=== PATIENT | female | born 1950 | race Caucasian/White ===

== ENCOUNTER 2019-03-27 16:36 | Emergency (ER) | payer MEDICARE, OTHER ==
[~2019-03-27] VITALS: Ht 154.9 cm; Wt 50.9 kg
[2019-03-27 17:16] LABS: BASO % 0.3 % (0.0-1.0); EOS % 0.1 % (0.0-3.0); HEMATOCRIT 39.8 % (36.0-47.0); HEMOGLOBIN 13.2 g/dl (12.0-15.5); LYMPH # 2.4 10^3/uL (1.5-4.5); LYMPH % 19.6 % (24.0-44.0); MEAN CORPUSCULAR HEMOGLOBIN 31.5 pg (27.0-33.0); MEAN CORPUSCULAR HGB CONC 33.2 g/dl (32.0-36.5); MONO # 1.3 10^3/uL (0.0-0.8); MONO % 10.8 % (0.0-5.0); NEUTROPHILS # 8.3 10^3/uL (1.8-7.7); NEUTROPHILS % 68.7 % (36.0-66.0); PLATELET COUNT, AUTOMATED 243 10^3/uL (150-450); RED BLOOD COUNT 4.19 10^6/uL (4.00-5.40)
[2019-03-27 17:32] LABS: BLOOD UREA NITROGEN 8 MG/DL (7-18); CREATININE FOR GFR 0.67 MG/DL (0.55-1.30); GLUCOSE, FASTING 113 MG/DL (70-100)
[2019-03-27 17:33] LABS: CALCIUM LEVEL 8.8 MG/DL (8.8-10.2); CARBON DIOXIDE LEVEL 26 MEQ/L (21-32); CHLORIDE LEVEL 105 MEQ/L (98-107); GLOMERULAR FILTRATION RATE > 60.0 (>45); POTASSIUM SERUM 4.1 MEQ/L (3.5-5.1); SODIUM LEVEL 138 MEQ/L (136-145)
[2019-03-27 18:13] VITALS: BP 130/83
--- NOTE | 2019-03-27 18:30 | REP ---
LUMBOSACRAL SPINE: Five views of the lumbosacral spine are performed. No compression fracture is seen. There is severe right rotatory thoracolumbar scoliosis with accentuation of lumbar lordosis. There is mild diffuse spurring. There is mild to moderate disc space narrowing at all levels with sclerosis and hypertrophic spurring at the posterior facet joints diffusely but especially at L4-5 and L5-S1. Posterior elements are grossly intact. IMPRESSION: Significant degenerative changes and right rotatory thoracolumbar scoliosis. No compression fracture is seen. Electronically Signed by William Munroe MD 03/27/2019 08:19 P
== END 2019-03-27 18:40 | disposition home or self-care (01) ==
LOC: M ED 16:36
DX: M54.5 Low back pain (principal); M41.9 Scoliosis, unspecified; M51.37 Other intervertebral disc degeneration, lumbosacral region; L40.9 Psoriasis, unspecified; R01.1 Cardiac murmur, unspecified; Z88.5 Allergy status to narcotic agent

== ENCOUNTER → 2019-05-22 | Outpatient (CLI) | payer MEDICARE, OTHER ==
--- NOTE | 2019-05-22 10:49 | REPMRS ---
Patient History The patient states she has not had a clinical breast exam in over a year. No known family history of cancer. Benign stereotactic core biopsy of the left breast, 2008. Took hormonal contraceptives for 13 years. 3D TOMOSYNTHESIS WAS PERFORMED. The Rainer Maher lifetime risk for breast cancer is 5.6%. Digital Mammo Screening Bilat: May 22, 2019 - Exam #: [id number] Bilateral CC and MLO view(s) were taken. Technologist: Ayah Fiore, Technologist Prior study comparison: January 20, 2016, bilateral digital mammo screening bilat performed at [facility]. February 11, 2015, bilateral digital mammo screening bilat performed at [facility]. FINDINGS: The breast tissue is heterogeneously dense. This may lower the sensitivity of mammography. There has been no change in the appearance of the mammogram from the prior studies. There is a moderate amount of residual fibroglandular tissue which is fairly symmetric. There is no interval development of dominant mass, areas of architectural distortion, or clustered microcalcification typical of malignancy. Assessment: BI-RADS/ACR category 1 mammogram. Negative Mammogram. Recommendation Routine screening mammogram in 1 year (for women over age 40). This mammogram was interpreted with the aid of an FDA-approved computer-aided dectection system. Electronically Signed By: William Munroe MD 05/22/19 [id number]
== END ==
LOC: M RAD 09:13
PROVIDERS: ATTEND Physician Assistant
DX: Z12.31 Encounter for screening mammogram for malignant neoplasm of breast (principal); Z92.0 Personal history of contraception

== ENCOUNTER → 2019-06-04 | Outpatient (CLI) | payer MEDICARE, OTHER ==
[2019-06-04 09:09] LABS: CHOLESTEROL RISK RATIO 4.47 (<5); MAGNESIUM LEVEL 2.6 MG/DL (1.8-2.4)
== END ==
LOC: M LAB 08:07
PROVIDERS: ATTEND Physician Assistant
DX: Z00.00 Encounter for general adult medical examination without abnormal findings (principal)

== ENCOUNTER → 2019-06-26 | Outpatient (CLI) | payer MEDICARE, OTHER ==
[~2019-06-26] MED LIST: CENT1TAB PO; CENTCHW4 PO; CETI5SOL3 PO; D200CAP3 PO; GNP250TA9 PO; MAGN240P PO; MYLASSUD PO; VITA1CHW7 PO; ZYRTTAB8 PO
[2019-06-26 08:40] LABS: BASO % 0.1 % (0.0-1.0); HEMATOCRIT 34.1 % (36.0-47.0); HEMOGLOBIN 11.3 g/dl (12.0-15.5); LYMPH # 1.3 10^3/uL (1.5-5.0); LYMPH % 16.8 % (24.0-44.0); MEAN CORPUSCULAR HEMOGLOBIN 32.6 pg (27.0-33.0); MEAN CORPUSCULAR HGB CONC 33.1 g/dl (32.0-36.5); MEAN CORPUSCULAR VOLUME 98.3 fl (80.0-96.0); MONO # 0.4 10^3/uL (0.0-0.8); MONO % 5.5 % (0.0-5.0); NEUTROPHILS # 5.9 10^3/uL (1.5-8.5); NEUTROPHILS % 76.9 % (36.0-66.0); PLATELET COUNT, AUTOMATED 136 10^3/uL (150-450); RED BLOOD COUNT 3.47 10^6/uL (4.00-5.40); WHITE BLOOD COUNT 7.7 10^3/uL (4.0-10.0)
[2019-06-26 09:09] LABS: ALT/SGPT 13 U/L (12-78); BILIRUBIN,TOTAL 1.2 MG/DL (0.2-1.0); BLOOD UREA NITROGEN 7 MG/DL (7-18); CALCIUM LEVEL 8.7 MG/DL (8.8-10.2); CARBON DIOXIDE LEVEL 25 MEQ/L (21-32); CHLORIDE LEVEL 105 MEQ/L (98-107); CREATININE FOR GFR 0.66 MG/DL (0.55-1.30); GLOMERULAR FILTRATION RATE > 60.0 (>45); GLUCOSE, FASTING 113 MG/DL (70-100); SODIUM LEVEL 139 MEQ/L (136-145)
== END ==
LOC: M LAB 08:08
PROVIDERS: ATTEND Family Medicine
DX: R01.1 Cardiac murmur, unspecified (principal)

== ENCOUNTER → 2019-06-28 | Outpatient (CLI) | payer MEDICARE, OTHER ==
--- NOTE | 2019-06-28 18:48 | ECHO ---
DATE OF PROCEDURE: 06/28/2019 AGE: 69 GENDER: Female HEIGHT: 61 inches WEIGHT: 104 pounds BODY SURFACE AREA: 1.43 m2 PATIENT LOCATION: Outpatient REFERRING PHYSICIAN: Susan Briseno MD INDICATION: Murmur. 2D MEASUREMENTS RV: 3.6 cm LV: 5.2 cm Septum: 0.9 cm Posterior wall: 0.9 cm Aortic root: 2.2 cm LA: 5.0 cm LVEF: 75% DOPPLER MEASUREMENTS: AV: 1.26 m/s LVOT: 1.17 m/s LVOT diameter: 1.8 cm MV-E: 150, A: 117, EA ratio: 1.3 Early mitral deceleration time: 180 ms E prime: 10.4, A prime: 9, E/E prime ratio: 14.4 PCWP: 17.3 PV: 0.7 m/s Pulmonary artery acceleration time: 74 ms RVSP: 49 - 54 mmHg IVC: 1.6 cm COMMENTS Normal sinus rhythm without intraventricular conduction disturbance. M-mode and two-dimensional echocardiography was performed with pulsed, continuous wave, color flow and tissue Doppler studies. Normal left ventricular size, wall thickness and hyperkinetic wall motion. Moderately prominently dilated left atrium with Doppler findings suggestive of at least a mildly elevated mean left atrial pressure. Normal right heart chamber sizes and motion with Doppler evidence of at least moderate pulmonary hypertension. Normal IVC size with slightly reduced respiratory collapse in keeping with central venous pressure of 10 - 15 mmHg. Normal appearing and functioning aortic valve. Normal aortic root size. 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 Could not rule out a sessile vegetation on the posterior mitral leaflet but no obvious ruptured chordae tendineae. Normal appearing tricuspid valve with mild to moderate insufficiency. No separate intracardiac mass or pericardial effusion. Would strongly recommend complete blood count, sedimentation rate and two separate sets of blood cultures along with transesophageal echocardiography to further define her mitral valve. MTDD
== END ==
LOC: M CARPUL 10:18
PROVIDERS: ATTEND Family Medicine
DX: R01.1 Cardiac murmur, unspecified (principal); R60.0 Localized edema; I34.1 Nonrheumatic mitral (valve) prolapse; I36.1 Nonrheumatic tricuspid (valve) insufficiency

== ENCOUNTER 2019-07-02 09:21 | Inpatient (IN) | payer MEDICARE, OTHER ==
[~2019-07-02] VITALS: Ht 154.9 cm; Wt 45.1 kg
[2019-07-02] MEDS ORDERED: ZYRTTAB8 PO (09:40)
[2019-07-02] MEDS ORDERED: D200CAP3 PO (09:40)
[2019-07-02] MEDS ORDERED: CENT1TAB PO (09:40)
[2019-07-02] MEDS ORDERED: GNP250TA9 PO (09:40)
[2019-07-02 10:21] LABS: BASO % 0.3 % (0.0-1.0); HEMATOCRIT 34.1 % (36.0-47.0); LYMPH % 20.2 % (24.0-44.0); MEAN CORPUSCULAR HEMOGLOBIN 32.1 pg (27.0-33.0); MEAN CORPUSCULAR HGB CONC 32.3 g/dl (32.0-36.5); MEAN CORPUSCULAR VOLUME 99.4 fl (80.0-96.0); MONO # 0.5 10^3/uL (0.0-0.8); MONO % 4.6 % (0.0-5.0); NEUTROPHILS # 7.3 10^3/uL (1.5-8.5); NEUTROPHILS % 74.1 % (36.0-66.0); PLATELET COUNT, AUTOMATED 121 10^3/uL (150-450); RED BLOOD COUNT 3.43 10^6/uL (4.00-5.40); WHITE BLOOD COUNT 9.8 10^3/uL (4.0-10.0)
[2019-07-02 10:44] LABS: BLOOD UREA NITROGEN 9 MG/DL (7-18); C REACTIVE PROTEIN QUANTITATIV 1.94 MG/DL (0.00-0.30); CALCIUM LEVEL 8.5 MG/DL (8.8-10.2); CARBON DIOXIDE LEVEL 24 MEQ/L (21-32); CHLORIDE LEVEL 105 MEQ/L (98-107); CREATININE FOR GFR 0.68 MG/DL (0.55-1.30); GLOMERULAR FILTRATION RATE > 60.0 (>45); GLUCOSE, FASTING 99 MG/DL (70-100); POTASSIUM SERUM 3.7 MEQ/L (3.5-5.1); SODIUM LEVEL 137 MEQ/L (136-145)
[2019-07-02] MEDS ORDERED: VITA1CHW7 PO (10:55)
[2019-07-02] MEDS ORDERED: MAGN240P PO (10:55)
[2019-07-02] MEDS ORDERED: CETI5SOL3 PO (10:55)
[2019-07-02] MEDS ORDERED: CENTCHW4 PO (10:55)
[2019-07-02] MEDS ORDERED: FLUID PLACE HOLDER IV ONE (11:00)
[2019-07-02] MEDS ORDERED: VANCOMYCIN HCL IV ONE (11:00)
[2019-07-02 11:04] LABS: ERYTHROCYTE SEDIMENTATION RATE 39 mm/hr (0-30)
--- NOTE | 2019-07-02 11:39 | REP ---
Portable chest, 11:13 a.m., single AP view with the patient sitting: There are no comparisons. There is elevation of the right hemidiaphragm. There is scoliosis convex left in the inferior thoracic spine and right in the upper lumbar spine. The lung vill[place]te are clear. Cardiac size is upper normal for portable positioning. The fam, mediastinum, skeletal structures are otherwise unremarkable. Impression: There are no acute cardiopulmonary findings. Scoliosis as described. Elevated right hemidiaphragm. Electronically Signed by William Dillard MD 07/02/2019 11:30 A
[2019-07-02] MEDS ORDERED: MOM 30ML SUSPENSION UDC PO PRN (11:45)
[2019-07-02] MEDS ORDERED: MAALOX 30 ML SUSP *UDC PO PRN (11:45)
[2019-07-02] MEDS ORDERED: VANCOMYCIN HCL 1,000 MG, VIAL MATE ADAPTER 1 EACH in D5W 250 ML IV ONE (12:00)
[2019-07-02] MEDS ORDERED: VANCOMYCIN HCL 1,000 MG, VIAL MATE ADAPTER 1 EACH in D5W 250 ML IV SCH ×2 (13:00→14:30)
[2019-07-02 14:00] VITALS: BP 122/58
--- NOTE | 2019-07-02 14:40 | PHACANCOPD ---
PHARMACY VANCOMYCIN DOSING Pt Demographics Demographics Patient Age:69 , Weight:46.300 , Gender: female Adjusted Body Weight Date: 07/02/19, Adjusted Body Weight: [46.3] Kg Events Past 24 Hours Events Past 24 Hours: YES: Pending Diagnostics; NO: Dialysis, Diuretic Therapy, Change in CrCl, Fever, Elevation in WBC, Pending Procedures, Other Vancomycin Vancomycin indication: ENDOCARDITIS Vancomycin Target Ranges: 15-20 mcg/ml Vancomycin Load Y/N: Yes Load Dose Date Time Vancomycin Load Dose: 1G Date: 07/02/19 Time: 1200 Vancomycin Dose Date: 07/02/19. Current Vancomycin Dose: [750MG Q18H] Intermittent Dosing?: No Labs Labs Vital Signs Label Value Date Time Patient Temperature 97.9 degrees F 07/02/19 1400 Temperature Source Temporal 07/02/19 1400 Item Value Date Time Creatinine 0.68 MG/DL 07/02/19 0957 C-Reactive Protein, Quantitative 1.94 MG/DL H 07/02/19 0957 White Blood Count 9.8 10^3/uL 07/02/19 0957 Micro Microbiology 07/02/19 Blood Culture, Received Pending 07/02/19 Blood Culture, Received Pending 07/02/19 Blood Culture, Received Pending Creatinine Clearance Date:07/02/19. Creatinine Clearance: [63.9]. Pending Labs BLOOD CULTURES PENDING Assessment and Plan Maintaining Current Dose?: Yes Reason for dose change: No Dose Change Pharmacist Note Pharmacist Note Date: 07/02/19. Pharmacist note: Patient is new to our facility with no previous record of Vancomycin therapy. Suspected endocarditis yielded a vancomycin consult. The patient's creatinine is 0.68, her creatinine clearance is 63.9. She was given a 1g loading dose at 1200 on 07/02 and her calculated maintenance dose is 750mg Q18H with her next dose to be administered on 07/03/19 at 0600. We will continue to monitor and dose adjust as necessary. CARMINE MCCORMICK, PHARMACY Jul 02, 2019 14:40
[2019-07-02] MEDS ORDERED: SLF 3 ML SYR IV PRN (14:45)
--- NOTE | 2019-07-02 15:53 | HPEPDOC ---
General Date of Admission Jul 02, 2019 at 11:39 Date of Service: Jul 02, 2019 Chief Complaint The patient is a 69-year-old female admitted with a reason for visit of Infective Endocarditis. Source: Patient, RN/MD Exam Limitations: No limitations Severity: Moderate History of Present Illness 69 year old female with a cardiac murmur, scoliosis seen by cardio Dr Aguila on 05/24/19 for this murmur and scheduled for an echo on 07/13/19 has been feeling sick for the past 2 weeks. Has been feeling tired fatigued and noticed petecchia on her legs . Last week she noticed swelling of her legs with incresed SOB so went to see PMD. 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 Could not rule out a sessile vegetation on the posterior mitral leaflet but no obvious ruptured chordae ten dineae. Patient was called and told to come to the ED for possible endocarditis work up and management. Home Medications Scheduled Cetirizine Hcl (Cetirizine HCl) 1 Mg/1 Ml Solution, 5 ML PO BID, (Reported) Cholecalciferol (Vitamin D3) (Vitamin D3) 2,000 Unit Tab.chew, 2,000 UNIT PO DAILY, (Reported) HAS CHEWABLE GUMMIES AT HOME Magnesium Oxide (Magnesium Oxide 400) 240 Mg Powd.pack, 175 MG PO DAILY, (Reported) MIXED WITH WATER Multivit-Min/Iron/Folic/Vit K1 (Centrum Chewables Adults Tab) 1 Each Tab.chew, 1 TAB PO DAILY, (Reported) Allergies Coded Allergies: codeine (Verified Adverse Reaction, Intermediate, severe PRADHAN, 03/27/19) Past Medical History Medical History Chronic back pain, scoliosis, heart mumur Surgical History tonsillectomy, appendectomy, c section Family History She was adopted so does know about any family history Social History * Smoker: Denies Alcohol: Denies Drugs: denies A-FIB/CHADSVASC A-FIB History Current/History of A-Fib/PAF?: No Review of Systems Constitutional: Reports: Fever, Weakness, Fatigue; Denies: Chills, Malaise, Night Sweats Eyes: Denies: Pain, Vision change ENT: Denies: Head Aches, Ear Pain, Dysphagia Skin: Reports: Rash Pulmonary: Reports: Dyspnea; Denies: Cough Cardiovascular: Reports: Edema; Denies: Chest Pain, Palpitations, Orthopnea, Paroxysmal Noc. Dyspnea, Lt Headedness Gastrointestinal: Denies: Nausea, Vomiting, Abdominal Pain, Diarrhea Genitourinary: Denies: Dysuria, Frequency, Incontinence, Retention Hematologic: Reports: Petecchia Musculoskeletal: Reports: Back Pain; Denies: Neck Pain, Joint Pain, Muscle Pain, Spasms Physical Examination General Exam: Positive: Alert, Cooperative, No Acute Distress Eye Exam: Positive: PERRLA, Conjunctiva & lids normal, EOMI; Negative: Sclera icteric ENT Exam: Positive: Atraumatic, Mucous membr. moist/pink, Pharynx Normal Neck Exam: Positive: Supple; Negative: JVD, thyromegaly Chest Exam: Positive: Clear to auscultation, Normal air movement Heart Exam: Positive: Rate Normal, Regular Rhythm, Normal S1, Normal S2, Murmurs (systolic murmur); Negative: Rubs Telemetry: Positive: Sinus, Tachycardia Abdomen Exam: Positive: Normal bowel sounds, Soft; Negative: Tenderness, Hepatospenomegaly Extremity Exam: Positive: Edema (trace); Negative: Clubbing, Cyanosis Skin Exam: Positive: Rash (purpura) Psych Exam: Positive: Mental status NL, Mood NL, Oriented x 3 Vital Signs Vital Signs Date Time Temp Pulse Resp B/P (MAP) Pulse Ox O2 Delivery O2 Flow Rate FiO2 07/02/19 14:00 97.9 105 20 122/58 (79) 98 07/02/19 09:23 Room Air Laboratory Data Labs 24H Laboratory Tests 2 07/02/19 09:57: Immature Granulocyte % (Auto) 0.8, White Blood Count 9.8, Red Blood Count 3.43L, Hemoglobin 11.0L, Hematocrit 34.1L, Mean Corpuscular Volume 99.4H, Mean Corpuscular Hemoglobin 32.1, Mean Corpuscular Hemoglobin Concent 32.3, Red Cell Distribution Width 17.9H, Platelet Count 121L, Neutrophils (%) (Auto) 74.1H, Lymphocytes (%) (Auto) 20.2L, Monocytes (%) (Auto) 4.6, Eosinophils (%) (Auto) 0.0, Basophils (%) (Auto) 0.3, Neutrophils # (Auto) 7.3, Lymphocytes # (Auto) 2.0, Monocytes # (Auto) 0.5, Eosinophils # (Auto) 0.0, Basophils # (Auto) 0.0, Nucleated Red Blood Cells % (auto) 0.0, Erythrocyte Sedimentation Rate 39H, Anion Gap 8, Glomerular Filtration Rate > 60.0, Blood Urea Nitrogen 9, Creatinine 0.68, Sodium Level 137, Potassium Level 3.7, Chloride Level 105, Carbon Dioxide Level 24, Calcium Level 8.5L, C-Reactive Protein, Quantitative 1.94H CBC/BMP Laboratory Tests 07/02/19 09:57 Red Blood Count 3.43 L, Mean Corpuscular Volume 99.4 H, Mean Corpuscular Hemoglobin 32.1, Mean Corpuscular Hemoglobin Concent 32.3, Red Cell Distribution Width 17.9 H, Neutrophils (%) (Auto) 74.1 H, Lymphocytes (%) (Auto) 20.2 L, Monocytes (%) (Auto) 4.6, Eosinophils (%) (Auto) 0.0, Basophils (%) (Auto) 0.3, Neutrophils # (Auto) 7.3, Lymphocytes # (Auto) 2.0, Monocytes # (Auto) 0.5, Eosinophils # (Auto) 0.0, Basophils # (Auto) 0.0, Calcium Level 8.5 L Microbiology Microbiology 07/02/19 Blood Culture, Received Pending 07/02/19 Blood Culture, Received Pending 07/02/19 Blood Culture, Received Pending Assessment/Plan 69 year old female with a cardiac murmur, scoliosis seen by cardio Dr Aguila on 05/24/19 for this murmur and scheduled for an echo on 07/13/19 has been feeling sick for the past 2 weeks. Has been feeling tired fatigued and noticed petechaie on her legs . Last week she noticed swelling of her legs with incresed SOB so went to see PMD. 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 Could not rule out a sessile vegetation on the posterior mitral leaflet but no obvious ruptured chordae tendineae. Patient was called and told to come to the ED for possible endocarditis work up and management. Possible endocarditis 3 sets of blood cultures ordered. only blood fungal culture was ordered from PMD will give vancomycin and ceftriaxone spoke with Dr Aguila will do MUNIR on 07/03/19 at 2 pm , NPO after 6 am. ID consulted Scoliosis with chronic back pain have to rule out discitis if blood cultures are positive or there are vegetations in the MUNIR MVP and severe Mitral regurgitation watch for CHF and fluid overload. Monitor I/O and daily weights. Appears euvolemic at present. Plan / VTE VTE Prophylaxis Ordered?: Yes GERARDO LOPEZ MD Jul 02, 2019 15:53
[2019-07-02 16:00] VITALS: BP 112/67
[2019-07-02] MEDS: cefTRIAXone SOD 2 GM in D5W MINI-BAG PLUS 50 ML IV SCH (16:06)
[2019-07-02 20:00] VITALS: BP 118/57
[2019-07-02] MEDS: SLF 3 ML SYR IV SCH (20:30)
[2019-07-02 23:59] VITALS: BP 116/56
[2019-07-03 04:00] VITALS: BP 115/56
--- NOTE | 2019-07-03 04:36 | ECGEPIP ---
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
[2019-07-03] MEDS: SLF 3 ML SYR IV SCH ×3 (05:51→22:03)
[2019-07-03 05:55] LABS: BASO % 0.1 % (0.0-1.0); HEMATOCRIT 29.5 % (36.0-47.0); HEMOGLOBIN 9.5 g/dl (12.0-15.5); LYMPH # 1.8 10^3/uL (1.5-5.0); LYMPH % 26.2 % (24.0-44.0); MEAN CORPUSCULAR HEMOGLOBIN 30.9 pg (27.0-33.0); MEAN CORPUSCULAR HGB CONC 32.2 g/dl (32.0-36.5); MEAN CORPUSCULAR VOLUME 96.1 fl (80.0-96.0); MONO # 0.5 10^3/uL (0.0-0.8); MONO % 6.7 % (0.0-5.0); NEUTROPHILS # 4.5 10^3/uL (1.5-8.5); NEUTROPHILS % 66.4 % (36.0-66.0); PLATELET COUNT, AUTOMATED 115 10^3/uL (150-450); RED BLOOD COUNT 3.07 10^6/uL (4.00-5.40); WHITE BLOOD COUNT 6.8 10^3/uL (4.0-10.0)
[2019-07-03] MEDS ORDERED: VANCOMYCIN HCL 750 MG, VIAL MATE ADAPTER 1 EACH in D5W 250 ML IV SCH ×2 (06:00→07:00)
[2019-07-03 06:12] LABS: BLOOD UREA NITROGEN 7 MG/DL (7-18); CARBON DIOXIDE LEVEL 25 MEQ/L (21-32); CHLORIDE LEVEL 107 MEQ/L (98-107); CREATININE FOR GFR 0.52 MG/DL (0.55-1.30); GLOMERULAR FILTRATION RATE > 60.0 (>45); GLUCOSE, FASTING 103 MG/DL (70-100); POTASSIUM SERUM 3.6 MEQ/L (3.5-5.1); SODIUM LEVEL 138 MEQ/L (136-145)
[2019-07-03 08:00] VITALS: BP 110/74
--- NOTE | 2019-07-03 09:03 | ECGEPIP ---
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
[2019-07-03] MEDS: ENOXAPARIN 40 MG/0.4 ML SYRINGE (J1650) SC SCH (09:25)
--- NOTE | 2019-07-03 11:01 | CR ---
DATE OF CONSULTATION: 07/02/2019 I was asked to consult by the hospitalist for evaluation of abnormal echocardiogram with possible vegetation. HISTORY OF PRESENT ILLNESS: Mr. 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 The patient had severe back pain. She came to the emergency room and was told she had a significant heart murmur and to follow up with her primary care provider. She was seen by Dr. 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 She had decreased appetite and did not want to eat and was feeling depressed. She then got concerned because she was having increasing lower extremity edema with some petechial lesions on her feet. She went to see Dr. Briseno who ordered an urgent echocardiogram which showed some myxomatous degeneration of the mitral valve with a severe mitral insufficiency and a posterior leaflet prolapse. There was concern for vegetation and therefore the patient was admitted for further workup to the hospital. She is scheduled for transesophageal echocardiogram (MUNIR) tomorrow. She states for the past couple years she has had increasing shortness of breath with exertion and some palpitations, but they only occur after she exerts herself carrying things. She had some low grade fever for the past week or two that she did not really notice significantly except that when she got checked at the doctor's office she had a temperature of 100.4. Her checked it a couple times at home as well. She has night sweats she relates to menopause which she has had for years. No nausea, vomiting or diarrhea. No dysuria or hematuria. No upper or lower extremity weakness. PAST MEDICAL HISTORY: Significant for chronic back pain from scoliosis, recent diagnosis of heart murmur, seasonal allergies, vitamin D deficiency, osteoporosis. ALLERGIES: - CODEINE She also states that AUGMENTIN gives her severe diarrhea and she had a rash between her thighs, but otherwise she tolerates amoxicillin, so this is not an allergy. MEDICATIONS: - cetirizine 5 mg by mouth twice a day - vitamin D3 2000 units daily - magnesium oxide daily - multivitamin 1 tablet daily SOCIAL HISTORY: She lives with her . She does not smoke, drink or use drugs. She is . FAMILY HISTORY: She was adopted and therefore does not know her family history. She only had one kid, Ashleigh, who is healthy. REVIEW OF SYSTEMS: She had low grade fever. No chills. She has a night sweats from menopause. No nausea, vomiting, diarrhea, abdominal pain. Rare palpitations and shortness of breath with exertion. No joint pains. No neck pain, but has significant back pain from scoliosis. The patient has gum bleeding and recently had a dental cleaning. PHYSICAL EXAMINATION: Temperature is 99.1, pulse 101, respirations 18, blood pressure 112/67, O2 sat 100% on room air. General Appearance: Healthy looking female in no acute distress. Heart: Normal S1 and S2 with a holosystolic ejection murmur 3/6 pansystolic, heard over the whole precordium, no S3 or gallops Lungs: A few crackles at the left base. No wheezes or rhonchi. Abdomen: Soft, nontender. No visceromegaly. Extremities: Trace pedal edema with petechial rash involving the toes and the shins. Neurologic Exam: Alert, oriented times three. Upper and lower extremity strength normal. HEENT: Pupils equal and reactive, anicteric. Oropharynx is clear. No petechial lesions. Muskuloskeletal severe thoracic scoliosis , no CVA or LS tenderness LABORATORY DATA: White count is 9.8, hemoglobin 11, hematocrit 34.1, platelets 121. ESR 39. Sodium 137, potassium 3.7, chloride 105, bicarb 24, BUN 9, creatinine 0.68, glucose 99, calcium 8.5, CRP 1.94. Blood cultures three sets were done over a 20 minute interval. MEDICATIONS: - Vancomycin 750 mg IV every 18 hours - Rocephin 2 grams IV every 24 hours IMAGING STUDIES: Chest x-ray PA and lateral shows severe scoliosis, elevated right hemidiaphragm. Lungs are clear. ECHOCARDIOGRAM: Done 06/28/2019 shows myxomatous proliferation of the mitral valve with possible posterior leaflet prolapse, severe mitral insufficiency, vegetation versus ruptured chordae. IMPRESSION: 69-year-old female who was admitted with severe mitral regurgitation, low grade fever, slightly elevated sed rate and CRP, petechial lesions on her legs and lower extremity edema. Echocardiogram was concerning for endocarditis and therefore the patient is admitted for further workup. She already has received IV antibiotics and had three sets of blood cultures done over a 20-minute interval time. She has been started on IV Rocephin and vancomycin. Differential diagnosis is most likely if the patient has endocarditis it will be a Strep viridans from oral mucosa versus Enterococcus from GI origin. The patient has never had a colonoscopy in her life. PLAN: Continue IV vancomycin and Rocephin. Waiting for results of blood cultures. Recommendation is for blood culture drawn more than over a 20-minute period and antibiotics could have been held until all cultures had been obtained over a longer interval 12-24 hours to increase the yield MUNIR is scheduled for tomorrow. Hopefully, we will get positive cultures to deescalate to appropriate antibiotics. There was also a fungal?? cultures drawn on 06/26/2019. I am not sure why these were sent possibly an error Will also call the [facility] to see if these have any growth. If the patient has endocarditis, she will need a peripherally inserted central catheter (PICC) line placed for home IV antibiotics. If she develops decompensated CHF may need valve replacement for severe Mitral regurgitation MTDD
--- NOTE | 2019-07-03 11:07 | IPNPDOC ---
Subjective Date Seen The patient was seen on 07/03/19. Subjective Chief Complaint/HPI Offers no new complaints at the present time General: Denies: ROS Unobtainable, Chills, Night Sweats, Fatigue, Malaise, Nor mal Appetite, Other Symptoms Constitutional: Denies: Chills, Fever, Malaise, Night Sweats, Weakness, Fatigue, Weight Loss, Lethargy, Other Eyes: Denies: Pain, Vision change, Conjunctivae inflammation, Eyelid inflammation, Redness, Other ENT: Denies: Head Aches, Ear Pain, Dysphagia, Sinus Congestion, Post Nasal Drip, Sore Throat, Epistaxis, Other Symptoms Skin: Denies: Rash, Lesions, Jaundice, Bruising, Itching, Dry, Breakdown, Nail Changes, Other Pulmonary: Denies: Dyspnea, Cough, Pleuritic Chest Pain, Other Symptoms Cardiovascular: Denies: Chest Pain, Palpitations, Orthopnea, Paroxysmal Noc. Dyspnea, Edema, Lt Headedness, Other Symptoms Gastrointestinal: Denies: Nausea, Vomiting, Abdominal Pain, Diarrhea, Constipation, Melena, Hematochezia, Other Symptoms Musculoskeletal: Denies: Neck Pain, Back Pain, Shoulder Pain, Arm Pain, Hand Pain, Leg Pain, Foot Pain, Joint Pain, Muscle Pain, Spasms, Other Symptoms Neurological: Denies: Weakness, Numbness, Incoordination, Change in speech, Confusion, Seizures, Other Symptoms Objective Physical Examination ENT Exam: Positive: Atraumatic, Mucous membr. moist/pink, Pharynx Normal Neck Exam: Positive: Supple Chest Exam: Positive: Clear to auscultation, Normal air movement Heart Exam: Positive: Rate Normal, Regular Rhythm, Normal S1, Normal S2, Murmurs (systolic murmur) Telemetry: Positive: Sinus, Tachycardia Abdomen Exam: Positive: Normal bowel sounds, Soft Extremity Exam: Positive: Edema (trace) Assessment /Plan Problems (1) Infectious endocarditis Status: Acute Problem Text: 69 year old female with a cardiac murmur, scoliosis seen by cardio Dr Aguila on 05/24/19 for this murmur and scheduled for an echo on 07/13/19 has been feeling sick for the past 2 weeks. Has been feeling tired fatigued and noticed petechaie on her legs . Last week she noticed swelling of her legs with incresed SOB so went to see PMD. 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 Could not rule out a sessile vegetation on the posterior mitral leaflet but no obvious ruptured chordae tendineae. Patient was called and told to come to the ED for possible endocarditis work up and management. 3 sets of blood cultures ordered. only blood fungal culture was ordered from PMD will give vancomycin and ceftriaxone Is scheduled for MUNIR today. Patient is nothing by mouth Addendum: received from Dr. Ribera who was called by Dr. aguila, who attempted to do MUNIR but was unable to perform secondary to lack of pediatric probe. Recommended to transfer patient to use tertiary care facility. [facility] [place] was called and patient has been requested for transferring patient for MUNIR and possibly mitral valve repair repair. (2) Mitral valve regurgitation Status: Chronic Problem Text: MVP and severe Mitral regurgitation watch for CHF and fluid overload. Monitor I/O and daily weights. Appears euvolemic at present. (3) Scoliosis Status: Acute Problem Text: Scoliosis with chronic back pain have to rule out discitis if blood cultures are positive or there are vegetations in the MUNIR Plan/VTE VTE Prophylaxis Ordered?: Yes VS, I&O, 24H, Fishbone Vital Signs/I&O Vital Signs Date Time Temp Pulse Resp B/P (MAP) Pulse Ox O2 Delivery O2 Flow Rate FiO2 07/03/19 08:00 99.0 116 18 110/74 (86) 96 07/02/19 09:23 Room Air I&O- Last 24 Hours up to 6 AM 07/03/19 06:00 Intake Total 1110 ml Output Total 800 ml Balance 310 ml Laboratory Data 24H LABS Laboratory Tests 2 07/03/19 05:24: Immature Granulocyte % (Auto) 0.6, White Blood Count 6.8, Red Blood Count 3.07L, Hemoglobin 9.5L, Hematocrit 29.5L, Mean Corpuscular Volume 96.1H, Mean Corpuscular Hemoglobin 30.9, Mean Corpuscular Hemoglobin Concent 32.2, Red Cell Distribution Width 17.9H, Platelet Count 115L, Neutrophils (%) (Auto) 66.4H, Lymphocytes (%) (Auto) 26.2, Monocytes (%) (Auto) 6.7H, Eosinophils (%) (Auto) 0.0, Basophils (%) (Auto) 0.1, Neutrophils # (Auto) 4.5, Lymphocytes # (Auto) 1.8, Monocytes # (Auto) 0.5, Eosinophils # (Auto) 0.0, Basophils # (Auto) 0.0, Nucleated Red Blood Cells % (auto) 0.0, Anion Gap 6L, Glomerular Filtration Rate > 60.0, Blood Urea Nitrogen 7, Creatinine 0.52L, Sodium Level 138, Potassium Level 3.6, Chloride Level 107, Carbon Dioxide Level 25, Calcium Level 8.0L CBC/BMP Laboratory Tests 07/03/19 05:24 Red Blood Count 3.07 L, Mean Corpuscular Volume 96.1 H, Mean Corpuscular Hemoglobin 30.9, Mean Corpuscular Hemoglobin Concent 32.2, Red Cell Distribution Width 17.9 H, Neutrophils (%) (Auto) 66.4 H, Lymphocytes (%) (Auto) 26.2, Monocytes (%) (Auto) 6.7 H, Eosinophils (%) (Auto) 0.0, Basophils (%) (Auto) 0.1, Neutrophils # (Auto) 4.5, Lymphocytes # (Auto) 1.8, Monocytes # (Auto) 0.5, Eosinophils # (Auto) 0.0, Basophils # (Auto) 0.0, Calcium Level 8.0 L Microbiology Microbiology 07/02/19 Blood Culture - Preliminary, Resulted No growth after 24 hours . All specim... 07/02/19 Blood Culture - Preliminary, Resulted No growth after 24 hours . All specim... 07/02/19 Blood Culture - Preliminary, Resulted No growth after 24 hours . All specim... DOE VALENTINO MD Jul 03, 2019 11:07
[2019-07-03] MEDS ORDERED: fentaNYL 100 MCG/2 ML INJECTION (J3010) As Ordered ONE (11:51)
[2019-07-03 12:00] VITALS: BP 102/64
[2019-07-03] MEDS ORDERED: PROPOFOL 500 MG/50 ML VIAL As Ordered ONE (12:20)
[2019-07-03] MEDS ORDERED: ONDANSETRON 4MG/2ML VIAL (J2405) As Ordered ONE (12:20)
[2019-07-03] MEDS ORDERED: MIDAZOLAM INJ 2 MG/2 ML VIAL (J2250) As Ordered ONE (12:21)
[2019-07-03] MEDS ORDERED: LIDOCAINE 2% INJ 100 MG/5 ML SDV (FOR ANES.) As Ordered ONE (12:21)
[2019-07-03] MEDS ORDERED: PROPOFOL 200 MG/20 ML VIAL As Ordered ONE (12:22)
[2019-07-03] MEDS ORDERED: LIDOCAINE VISCOUS 2% SOLN 15ML UDC As Ordered ONE (12:45)
[2019-07-03] MEDS ORDERED: CETACAINE SPRAY 5GM As Ordered ONE (12:45)
[2019-07-03] MEDS ORDERED: ACETAMINOPHEN 1000MG 100ML IV BTL (OFIRMEV) (J0131 PER 10MG) As Ordered ONE (14:50)
[2019-07-03] MEDS ORDERED: AMIODARONE HCL 150 MG in APPROPRIATE DILUENT 1 EA IV ONE (16:00)
[2019-07-03] MEDS ORDERED: ONDANSETRON 4MG/2ML VIAL (J2405) IV PRN (16:00)
[2019-07-03] MEDS ORDERED: LR 1,000 ML IV SCH (16:00)
[2019-07-03] MEDS ORDERED: fentaNYL 100 MCG/2 ML INJECTION (J3010) IV PRN (16:00)
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
[2019-07-03 16:16] VITALS: BP 106/64
[2019-07-03] MEDS ORDERED: AMIODARONE 150MG/3ML INJ (J0282) ONE (16:26)
[2019-07-03] MEDS: cefTRIAXone SOD 2 GM in D5W MINI-BAG PLUS 50 ML IV SCH (17:00)
[2019-07-03 20:00] VITALS: BP 124/66
[2019-07-03 23:58] VITALS: BP 97/55
[2019-07-04 04:00] VITALS: BP 109/68
[2019-07-04] MEDS ORDERED: LIDOCAINE VISCOUS 2% SOLN 15ML UDC SSP PRN (04:15)
[2019-07-04] MEDS: SLF 3 ML SYR IV SCH ×3 (05:07→20:27)
[2019-07-04 05:41] LABS: BASO % 0.3 % (0.0-1.0); HEMATOCRIT 31.8 % (36.0-47.0); HEMOGLOBIN 10.2 g/dl (12.0-15.5); LYMPH # 1.9 10^3/uL (1.5-5.0); LYMPH % 27.4 % (24.0-44.0); MEAN CORPUSCULAR HEMOGLOBIN 31.4 pg (27.0-33.0); MEAN CORPUSCULAR HGB CONC 32.1 g/dl (32.0-36.5); MEAN CORPUSCULAR VOLUME 97.8 fl (80.0-96.0); MONO # 0.5 10^3/uL (0.0-0.8); MONO % 6.5 % (0.0-5.0); NEUTROPHILS # 4.6 10^3/uL (1.5-8.5); NEUTROPHILS % 65.5 % (36.0-66.0); PLATELET COUNT, AUTOMATED 132 10^3/uL (150-450); RED BLOOD COUNT 3.25 10^6/uL (4.00-5.40)
[2019-07-04 05:59] LABS: BLOOD UREA NITROGEN 9 MG/DL (7-18); CALCIUM LEVEL 7.6 MG/DL (8.8-10.2); CARBON DIOXIDE LEVEL 23 MEQ/L (21-32); CHLORIDE LEVEL 112 MEQ/L (98-107); CREATININE FOR GFR 0.59 MG/DL (0.55-1.30); GLOMERULAR FILTRATION RATE > 60.0 (>45); GLUCOSE, FASTING 111 MG/DL (70-100); POTASSIUM SERUM 3.7 MEQ/L (3.5-5.1); SODIUM LEVEL 143 MEQ/L (136-145)
[2019-07-04 08:00] VITALS: BP 134/72
[2019-07-04] MEDS ORDERED: AMIODARONE 200 MG TAB (PACERONE) PO SCH (09:00)
[2019-07-04] MEDS: ENOXAPARIN 40 MG/0.4 ML SYRINGE (J1650) SC SCH (09:22)
[2019-07-04 09:31] LABS: NT-PRO BNP 4389 PG/ML (<125)
--- NOTE | 2019-07-04 10:13 | ECGEPIP ---
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
--- NOTE | 2019-07-04 10:24 | ECGEPIP ---
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
--- NOTE | 2019-07-04 10:31 | IPNPDOC ---
Subjective Date Seen The patient was seen on 07/04/19. Subjective Chief Complaint/HPI Patient is comfortable sitting in chair. Offers no new complaints. Family at bedside General: Denies: ROS Unobtainable, Chills, Night Sweats, Fatigue, Malaise, Normal Appetite, Other Symptoms Constitutional: Denies: Chills, Fever, Malaise, Night Sweats, Weakness, Fatigue, Weight Loss, Lethargy, Other Pulmonary: Denies: Dyspnea, Cough, Pleuritic Chest Pain, Other Symptoms Cardiovascular: Denies: Chest Pain, Palpitations, Orthopnea, Paroxysmal Noc. Dyspnea, Edema, Lt Headedness, Other Symptoms Gastrointestinal: Denies: Nausea, Vomiting, Abdominal Pain, Diarrhea, Constipation, Melena, Hematochezia, Other Symptoms Musculoskeletal: Denies: Neck Pain, Back Pain, Shoulder Pain, Arm Pain, Hand Pain, Leg Pain, Foot Pain, Joint Pain, Muscle Pain, Spasms, Other Symptoms Neurological: Denies: Weakness, Numbness, Incoordination, Change in speech, Confusion, Seizures, Other Symptoms Objective Physical Examination ENT Exam: Positive: Atraumatic, Mucous membr. moist/pink, Pharynx Normal Neck Exam: Positive: Supple Chest Exam: Positive: Clear to auscultation, Normal air movement Heart Exam: Positive: Rate Normal, Regular Rhythm, Normal S1, Normal S2, Murmurs Telemetry: Positive: Sinus, Tachycardia Abdomen Exam: Positive: Normal bowel sounds, Soft Extremity Exam: Positive: Edema, Normal pulses Assessment /Plan Problems (1) Infectious endocarditis Status: Acute Problem Text: 69 year old female with a cardiac murmur, scoliosis seen by cardio Dr Aguila on 05/24/19 for this murmur and scheduled for an echo on 07/13/19 has been feeling sick for the past 2 weeks. Has been feeling tired fatigued and noticed petechaie on her legs . Last week she noticed swelling of her legs with incresed SOB so went to see PMD. 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 Could not rule out a sessile vegetation on the posterior mitral leaflet but no obvious ruptured chordae tendineae. Patient was called and told to come to the ED for possible endocarditis work up and management. 3 sets of blood cultures ordered. only blood fungal culture was ordered from PMD Patient receiving vancomycin and Rocephin for possible endocarditis Dr. Aguila tried to do a PE, but was unsuccessful as patient needs a pediatric probe to perform the procedure secondary to her anatomy [facility] in [place] as been called as patient is a patient and patient's family wish to be transferred there, called again today patient is still on a waiting list. Patient's baseline rhythm is A. fib, she received a dose of amiodarone in ED, but unable to tolerate by mouth amiodarone, her vitals are stable and cardiology has recommended to continue monitoring without adding any new meds Patient will probably need a MUNIR with pediatric probe and possible mitral wall replacement. Once transferred to a tertiary care center (2) Mitral valve regurgitation Status: Chronic Problem Text: MVP and severe Mitral regurgitation watch for CHF and fluid overload. Monitor I/O and daily weights. Appears euvolemic at present. Probably needs a mitral wall replacement Transferred to [facility] is awaiting (3) Scoliosis Status: Acute Problem Text: Scoliosis with chronic back pain have to rule out discitis if blood cultures are positive or there are veg etations in the MUNIR Plan/VTE VTE Prophylaxis Ordered?: Yes VS, I&O, 24H, Fishbone Vital Signs/I&O Vital Signs Date Time Temp Pulse Resp B/P (MAP) Pulse Ox O2 Delivery O2 Flow Rate FiO2 07/04/19 08:00 98.2 120 16 134/72 (92) 96 07/02/19 09:23 Room Air I&O- Last 24 Hours up to 6 AM 07/04/19 06:00 Intake Total 605 ml Output Total 1400 ml Balance -795 ml Laboratory Data 24H LABS Laboratory Tests 2 07/03/19 22:49: Vancomycin Level Trough 5.2L 07/04/19 05:09: Immature Granulocyte % (Auto) 0.3, White Blood Count 7.0, Red Blood Count 3.25L, Hemoglobin 10.2L, Hematocrit 31.8L, Mean Corpuscular Volume 97.8H, Mean Corpuscular Hemoglobin 31.4, Mean Corpuscular Hemoglobin Concent 32.1, Red Cell Distribution Width 17.9H, Platelet Count 132L, Neutrophils (%) (Auto) 65.5, Lymphocytes (%) (Auto) 27.4, Monocytes (%) (Auto) 6.5H, Eosinophils (%) (Auto) 0.0, Basophils (%) (Auto) 0.3, Neutrophils # (Auto) 4.6, Lymphocytes # (Auto) 1.9, Monocytes # (Auto) 0.5, Eosinophils # (Auto) 0.0, Basophils # (Auto) 0.0, Nucleated Red Blood Cells % (auto) 0.0, Anion Gap 8, Glomerular Filtration Rate > 60.0, Blood Urea Nitrogen 9, Creatinine 0.59, Sodium Level 143, Potassium Level 3.7, Chloride Level 112H, Carbon Dioxide Level 23, Calcium Level 7.6L, CT-Amy-J-Type Natriuretic Peptide 4389H CBC/BMP Laboratory Tests 07/04/19 05:09 Red Blood Count 3.25 L, Mean Corpuscular Volume 97.8 H, Mean Corpuscular Hemoglobin 31.4, Mean Corpuscular Hemoglobin Concent 32.1, Red Cell Distribution Width 17.9 H, Neutrophils (%) (Auto) 65.5, Lymphocytes (%) (Auto) 27.4, Mo nocytes (%) (Auto) 6.5 H, Eosinophils (%) (Auto) 0.0, Basophils (%) (Auto) 0.3, Neutrophils # (Auto) 4.6, Lymphocytes # (Auto) 1.9, Monocytes # (Auto) 0.5, Eosinophils # (Auto) 0.0, Basophils # (Auto) 0.0, Calcium Level 7.6 L Microbiology Microbiology 07/02/19 Blood Culture - Preliminary, Resulted No Growth after 48 hours. All Specime... 07/02/19 Blood Culture - Preliminary, Resulted 07/02/19 Blood Culture - Preliminary, Resulted DOE VALENTINO MD Jul 04, 2019 10:31
--- NOTE | 2019-07-04 11:45 | IPN ---
DATE: 07/03/2019 Mrs. Servin had an attempted transesophageal echocardiogram today by Dr. Aguila, but the probe was too large for her esophagus. He could not go through the esophagus to get the echo performed. He called me and recommended that the patient be transferred to [place] for a transesophageal echocardiogram to be done with a pediatric probe due to the patient's relatively small body size combined with an esophageal spur at the back of the pharynx, small size and prominent over bite. The patient is a little upset but otherwise doing well. No nausea, vomiting or diarrhea. She is starving. No fever or chills. The patient has been afebrile and her blood cultures have remained negative. Lower extremity edema has improved. T-max since admission has been 99.1. LABORATORY DATA: White count is 6.8, hemoglobin 9.5, hematocrit 29.5, platelets 115, 66% neutrophils, 26% lymphocytes, 6% monocytes. ESR 39. Sodium 138, potassium 3.6, chloride 107, bicarb 25, BUN 7, creatinine 0.52, glucose 103, calcium 8 and CRP 1.94. PHYSICAL EXAMINATION: Holosystolic ejection murmur 3/6 all over the precordium. Abdomen is soft, nontender. No hepatosplenomegaly. Lungs few crackles at the left base. Oropharynx is clear with no lesions. No thrush. Lower extremity had trace edema at the ankles with few petechial lesions on the legs. No new ones compared to yesterday. Blood cultures drawn on 07/02, three sets only by 20 minutes, were all no growth at 24 hours. Another blood cultures had been done on 06/26 by outpatient but it specifies fungal culture. It was sent to [facility]. We will call to see if there was any growth in that vial. IMPRESSION: 1. Severe mitral regurgitation with possibility of endocarditis the patient needs transesophageal echocardiogram done and therefore will be transferred to [facility] for pediatric probe. Since the patient has been afebrile and her blood cultures have been negative, these were only drawn 20 minutes apart, all antibiotics will be discontinued. If the patient has recurrent fever please repeat blood cultures. 2. Mild thrombocytopenia. Continue to follow. Possibly related to endocarditis. 3. Severe scoliosis with chronic back pain, unchanged. PLAN: Transfer to [facility] for transesophageal echocardiogram. Discontinue all IV antibiotics. Repeat cultures for fever or evidence of endocarditis. Consider obtaining Q fever titers if cultures remain negative. Will call [id number] for blood cultures from 06/26.
[2019-07-04 12:00] VITALS: BP 118/70
--- NOTE | 2019-07-04 15:43 | DS.PDOC ---
Discharge Summary General Date of Admission Jul 02, 2019 at 11:39 Date of Discharge 07/05/19 Discharge Summary PROCEDURES PERFORMED DURING STAY: None. ADMITTING DIAGNOSES: 1. Possible infective endocarditis, severe mitral regurgitation, . DISCHARGE DIAGNOSES: 1. Possible infective endocarditis, severe mitral regurgitation, . COMPLICATIONS/CHIEF COMPLAINT: Infective Endocarditis. HISTORY OF PRESENT ILLNESS: 69 year old female with a cardiac murmur, scoliosis seen by cardio Dr Aguila on 05/24/19 for this murmur and scheduled for an echo on 07/13/19 has been feeling sick for the past 2 weeks. Has been feeling tired fatigued and noticed petecchia on her legs . Last week she noticed swelling of her legs with incresed SOB so went to see PMD. 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 Could not rule out a sessile vegetation on the posterior mitral leaflet but no obvious ruptured chordae tendineae. Patient was called and told to come to the ED for possible endocarditis work up and management.. HOSPITAL COURSE: 69 year old female with a cardiac murmur, scoliosis seen by cardio Dr Aguila on 05/24/19 for this murmur and scheduled for an echo on 07/13/19 has been feeling sick for the past 2 weeks. Has been feeling tired fatigued and noticed petechaie on her legs . Last week she noticed swelling of her legs with incresed SOB so went to see PMD. 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 Could not rule out a sessile vegetation on the posterior mitral leaflet but no obvious ruptured chordae tendineae. Patient was called and told to come to the ED for possible endocarditis work up and management. 3 sets of blood cultures ordered. only blood fungal culture was ordered from PMD Patient receiving vancomycin and Rocephin for possible endocarditis Dr. Aguila tried to do a PE, but was unsuccessful as patient needs a pediatric probe to perform the procedure secondary to her anatomy [facility] in [place] as been called as patient and patient's family wish to be transferred there, patient has been accepted there and will be transferred today Patient's baseline rhythm is A. fib, she received a dose of amiodarone in ED, but unable to tolerate by mouth amiodarone, her vitals are stable and cardiology has recommended to continue monitoring without adding any new meds Patient will probably need a MUNIR with pediatric probe and possible mitral wall replacement. Once transferred to a tertiary care center Patient also has a MVP and severe Mitral regurgitation watch for CHF and fluid overload. Monitor I/O and daily weights. Appears euvolemic at present. Probably needs a mitral valve replacement Transferred to [facility] is awaited DISCHARGE MEDICATIONS: Please see below. ALLERGIES: Please see below. PHYSICAL EXAMINATION ON DISCHARGE: VITAL SIGNS: Please see below. GENERAL: Within normal limits HEENT: [PERRLA. Extraocular muscles intact NECK: Supple, no JVD, no lymphadenopathy CARDIOVASCULAR EXAMINATION: [place] systolic and diastolic murmur at apex RESPIRATORY EXAMINATION: Clear to A&P ABDOMINAL EXAMINATION: , Soft, nontender, bowel sound present, no organomegaly EXTREMITIES: Positive edema SKIN: The normal limit NEUROLOGICAL EXAMINATION: Normal limit PSYCHIATRIC EXAMINATION: The normal limit LABORATORY DATA: Please see below. IMAGING: CXR:Impression: There are no acute cardiopulmonary findings. Scoliosis as described. Elevated right hemidiaphragm. PROGNOSIS: Fair ACTIVITY: As tolerated. DIET: As tolerated DISCHARGE PLAN: Transfer to tertiary care facility DISPOSITION: . To tertiary care facility for further cardiac workup DISCHARGE INSTRUCTIONS: 1. As above. ITEMS TO FOLLOWUP ON ON OUTPATIENT: 1. As above. DISCHARGE CONDITION: Stable. TIME SPENT ON DISCHARGE:45minutes. Vital Signs/I&Os Vital Signs Date Time Temp Pulse Resp B/P (MAP) Pulse Ox O2 Delivery O2 Flow Rate FiO2 07/04/19 12:00 97.9 116 18 118/70 (86) 100 07/02/19 09:23 Room Air I&O- Last 24 Hours up to 6 AM 07/04/19 06:00 Intake Total 605 ml Output Total 1400 ml Balance -795 ml Laboratory Data Labs 24H Laboratory Tests 2 07/03/19 22:49: Vancomycin Level Trough 5.2L 07/04/19 05:09: Immature Granulocyte % (Auto) 0.3, White Blood Count 7.0, Red Blood Count 3.25L, Hemoglobin 10.2L, Hematocrit 31.8L, Mean Corpuscular Volume 97.8H, Mean Corpuscular Hemoglobin 31.4, Mean Corpuscular Hemoglobin Concent 32.1, Red Cell Distribution Width 17.9H, Platelet Count 132L, Neutrophils (%) (Auto) 65.5, Lymphocytes (%) (Auto) 27.4, Monocytes (%) (Auto) 6.5H, Eosinophils (%) (Auto) 0.0, Basophils (%) (Auto) 0.3, Neutrophils # (Auto) 4.6, Lymphocytes # (Auto) 1.9, Monocytes # (Auto) 0.5, Eosinophils # (Auto) 0.0, Basophils # (Auto) 0.0, Nucleated Red Blood Cells % (auto) 0.0, Anion Gap 8, Glomerular Filtration Rate > 60.0, Blood Urea Nitrogen 9, Creatinine 0.59, Sodium Level 143, Potassium Level 3.7, Chloride Level 112H, Carbon Dioxide Level 23, Calcium Level 7.6L, GH-Rce-B-Type Natriuretic Peptide 4389H CBC/BMP Laboratory Tests 07/04/19 05:09 Red Blood Count 3.25 L, Mean Corpuscular Volume 97.8 H, Mean Corpuscular Hemoglobin 31.4, Mean Corpuscular Hemoglobin Concent 32.1, Red Cell Distribution Width 17.9 H, Neutrophils (%) (Auto) 65.5, Lymphocytes (%) (Auto) 27.4, Monocytes (%) (Auto) 6.5 H, Eosinophils (%) (Auto) 0.0, Basophils (%) (Auto) 0.3, Neutrophils # (Auto) 4.6, Lymphocytes # (Auto) 1.9, Monocytes # (Auto) 0.5, Eosinophils # (Auto) 0.0, Basophils # (Auto) 0.0, Calcium Level 7.6 L Microbiology Microbiology 07/02/19 Blood Culture - Preliminary, Resulted No Growth after 48 hours. All Specime... 07/02/19 Blood Culture - Preliminary, Resulted 07/02/19 Blood Culture - Preliminary, Resulted Discharge Medications Scheduled Cetirizine Hcl (Cetirizine HCl) 1 Mg/1 Ml Solution, 5 ML PO BID, (Reported) Cholecalciferol (Vitamin D3) (Vitamin D3) 2,000 Unit Tab.chew, 2,000 UNIT PO DAILY, (Reported) HAS CHEWABLE GUMMIES AT HOME Magnesium Oxide (Magnesium Oxide 400) 240 Mg Powd.pack, 175 MG PO DAILY, (Reported) MIXED WITH WATER Multivit-Min/Iron/Folic/Vit K1 (Centrum Chewables Adults Tab) 1 Each Tab.chew, 1 TAB PO DAILY, (Reported) Allergies Coded Allergies: codeine (Verified Adverse Reaction, Intermediate, severe PRADHAN, 03/27/19) DOE VALENTINO MD Jul 04, 2019 15:43
[2019-07-04 16:00] VITALS: BP 116/76
[2019-07-04 20:00] VITALS: BP 121/71
[2019-07-04 23:59] VITALS: BP 81/53
[2019-07-05 01:59] VITALS: BP 93/56
[2019-07-05 04:00] VITALS: BP 127/72
[2019-07-05] MEDS: SLF 3 ML SYR IV SCH ×3 (05:04→21:32)
[2019-07-05 06:07] LABS: BASO % 0.1 % (0.0-1.0); HEMOGLOBIN 9.4 g/dl (12.0-15.5); LYMPH # 2.1 10^3/uL (1.5-5.0); LYMPH % 29.5 % (24.0-44.0); MEAN CORPUSCULAR HEMOGLOBIN 31.3 pg (27.0-33.0); MEAN CORPUSCULAR HGB CONC 32.4 g/dl (32.0-36.5); MEAN CORPUSCULAR VOLUME 96.7 fl (80.0-96.0); MONO # 0.5 10^3/uL (0.0-0.8); MONO % 6.6 % (0.0-5.0); NEUTROPHILS # 4.4 10^3/uL (1.5-8.5); NEUTROPHILS % 63.5 % (36.0-66.0); PLATELET COUNT, AUTOMATED 135 10^3/uL (150-450)
[2019-07-05 06:32] LABS: BLOOD UREA NITROGEN 9 MG/DL (7-18); CALCIUM LEVEL 8.2 MG/DL (8.8-10.2); CARBON DIOXIDE LEVEL 24 MEQ/L (21-32); CHLORIDE LEVEL 110 MEQ/L (98-107); CREATININE FOR GFR 0.54 MG/DL (0.55-1.30); GLOMERULAR FILTRATION RATE > 60.0 (>45); GLUCOSE, FASTING 100 MG/DL (70-100); POTASSIUM SERUM 3.9 MEQ/L (3.5-5.1); SODIUM LEVEL 142 MEQ/L (136-145)
[2019-07-05 07:32] VITALS: BP 127/71
[2019-07-05] MEDS: ENOXAPARIN 40 MG/0.4 ML SYRINGE (J1650) SC SCH (09:19)
--- NOTE | 2019-07-05 10:22 | IPNPDOC ---
Subjective Date Seen The patient was seen on 07/05/19. Subjective Chief Complaint/HPI Patient is comfortable offers no new complaints. Has produced strength now General: Denies: ROS Unobtainable, Chills, Night Sweats, Fatigue, Malaise, Normal Appetite, Other Symptoms Constitutional: Denies: Chills, Fever, Malaise, Night Sweats, Weakness, Fatigue, Weight Loss, Lethargy, Other Skin: Denies: Rash, Lesions, Jaundice, Bruising, Itching, Dry, Breakdown, Nail Changes, Other Pulmonary: Denies: Dyspnea, Cough, Pleuritic Chest Pain, Other Symptoms Cardiovascular: Denies: Chest Pain, Palpitations, Orthopnea, Paroxysmal Noc. Dyspnea, Edema, Lt Headedness, Other Symptoms Gastrointestinal: Denies: Nausea, Vomiting, Abdominal Pain, Diarrhea, Constipation, Melena, Hematochezia, Other Symptoms Musculoskeletal: Denies: Neck Pain, Back Pain, Shoulder Pain, Arm Pain, Hand Pain, Leg Pain, Foot Pain, Joint Pain, Muscle Pain, Spasms, Other Symptoms Neurological: Denies: Weakness, Numbness, Incoordination, Change in speech, Confusion, Seizures, Other Symptoms Objective Physical Examination ENT Exam: Positive: Atraumatic, Mucous membr. moist/pink, Pharynx Normal Neck Exam: Positive: Supple Chest Exam: Positive: Clear to auscultation, Normal air movement Heart Exam: Positive: Rate Normal, Regular Rhythm, Normal S1, Normal S2, Murmurs Telemetry: Positive: Sinus, Tachycardia Abdomen Exam: Positive: Normal bowel sounds, Soft Extremity Exam: Positive: Edema, Normal pulses Assessment /Plan Problems (1) Infectious endocarditis Status: Acute Problem Text: 69 year old female with a cardiac murmur, scoliosis seen by cardio Dr Aguila on 05/24/19 for this murmur and scheduled for an echo on 0 07/13/19 has been feeling sick for the past 2 weeks. Has been feeling tired fatigued and noticed petechaie on her legs . Last week she noticed swelling of her legs with incresed SOB so went to see PMD. 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 Could not rule out a sessile vegetation on the posterior mitral leaflet but no obvious ruptured chordae tendineae. Patient was called and told to come to the ED for possible endocarditis work up and management. Out of 3 blood cultures 2 Blood cultures are positive for gram positive cocci in chains, but third set is negative, IV antibiotics were DC'd by infectious disease. Dr. Aguila tried to do a MUNIR, but was unsuccessful as patient needs a pediatric probe to perform the procedure secondary to her anatomy [facility] both a been called for possible transfer for MUNIR and possible mitral wall replacement Patient had a A. fib with a baseline, but she has converted to normal sinus rhythm spontaneously Patient will probably need a MUNIR with pediatric probe and possible mitral valve replacement. Once transferred to a tertiary care center (2) Mitral valve regurgitation Status: Chronic Problem Text: MVP and severe Mitral regurgitation watch for CHF and fluid overload. Monitor I/O and daily weights. Appears euvolemic at present. Probably needs a mitral valve replacement Transfer to tertiary care center awaited (3) Scoliosis Status: Acute Problem Text: Scoliosis with chronic back pain have to rule out discitis if blood cultures are positive or there are vegetations in the MUNIR Plan/VTE VTE Prophylaxis Ordered?: Yes VS, I&O, 24H, Fishbone Vital Signs/I&O Vital Signs Date Time Temp Pulse Resp B/P (MAP) Pulse Ox O2 Delivery O2 Flow Rate FiO2 07/05/19 07:32 98.4 88 18 127/71 (89) 94 07/02/19 09:23 Room Air I&O- Last 24 Hours up to 6 AM 07/05/19 06:00 Intake Total 850 ml Output Total 1300 ml Balance -450 ml Laboratory Data 24H LABS Laboratory Tests 2 07/05/19 05:46: Immature Granulocyte % (Auto) 0.3, White Blood Count 7.0, Red Blood Count 3.00L, Hemoglobin 9.4L, Hematocrit 29.0L, Mean Corpuscular Volume 96.7H, Mean Corpuscular Hemoglobin 31.3, Mean Corpuscular Hemoglobin Concent 32.4, Red Cell Distribution Width 18.0H, Platelet Count 135L, Neutrophils (%) (Auto) 63.5, Lymphocytes (%) (Auto) 29.5, Monocytes (%) (Auto) 6.6H, Eosinophils (%) (Auto) 0.0, Basophils (%) (Auto) 0.1, Neutrophils # (Auto) 4.4, Lymphocytes # (Auto) 2.1, Monocytes # (Auto) 0.5, Eosinophils # (Auto) 0.0, Basophils # (Auto) 0.0, Nucleated Red Blood Cells % (auto) 0.0, Anion Gap 8, Glomerular Filtration Rate > 60.0, Blood Urea Nitrogen 9, Creatinine 0.54L, Sodium Level 142, Potassium Level 3.9, Chloride Level 110H, Carbon Dioxide Level 24, Calcium Level 8.2L CBC/BMP Laboratory Tests 07/05/19 05:46 Red Blood Count 3.00 L, Mean Corpuscular Volume 96.7 H, Mean Corpuscular Hemoglobin 31.3, Mean Corpuscular Hemoglobin Concent 32.4, Red Cell Distribution Width 18.0 H, Neutrophils (%) (Auto) 63.5, Lymphocytes (%) (Auto) 29.5, Monocytes (%) (Auto) 6.6 H, Eosinophils (%) (Auto) 0.0, Basophils (%) (Auto) 0.1, Neutrophils # (Auto) 4.4, Lymphocytes # (Auto) 2.1, Monocytes # (Auto) 0.5, Eosinophils # (Auto) 0.0, Basophils # (Auto) 0.0, Calcium Level 8.2 L Microbiology Microbiology 07/02/19 Blood Culture - Preliminary, Resulted 07/02/19 Blood Culture - Preliminary, Resulted 07/02/19 Blood Culture - Preliminary, Resulted DOE VALENTINO MD Jul 05, 2019 10:21
[2019-07-05 12:00] VITALS: BP 121/57
[2019-07-05] MEDS ORDERED: MYLASSUD PO (14:31)
--- NOTE | 2019-07-05 14:58 | ECGEPIP ---
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
[2019-07-05 16:00] VITALS: BP 129/57
[2019-07-05] MEDS: cefTRIAXone SOD 2 GM in D5W MINI-BAG PLUS 50 ML IV SCH (18:09)
--- NOTE | 2019-07-05 19:52 | IPN ---
DATE: 07/05/2019 Kim was going to be transferred to [facility] today. The finally found a bed, but her blood cultures did grow gram positive cocci in pairs and chains what looks like Streptococcus Viridans after 72 hours. The patient states that after she received 48 hours of antibiotics IV vancomycin and Rocephin she was feeling better. I did discuss the case with Dr. Aguila who stated that based on the find of the transthoracic echocardiogram and positive blood cultures we do not need to obtain a transesophageal echocardiogram, that was enough to make a diagnosis of endocarditis and therefore her transfer to [facility] is going to be cancelled. The patient will be treated first with IV antibiotics and as long as she is not decompensated she will finish her course of antibiotics and then be evaluated for valve replacement. She has not had any fever or chills. She states her lower extremity edema is better. She has no shortness of breath. T-max on admission was 99.1. She has had no fever in the past 48 hours. Her last dose of antibiotic with vancomycin on 07/03. LABORATORY DATA White count 7, hemoglobin 9.4, hematocrit 29, platelets 135, 63% neutrophils, 29% lymphocytes, 6% monocytes. Sodium 142, potassium 3.9, chloride 110, bicarb 24, BUN 9, creatinine 0.54, glucose 100, calcium 8.2, BNP 4389. Blood cultures three sets done on 07/02 have gram-positive cocci in pairs and chains. Repeat blood culture was done today. IMPRESSION 1. 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 Identification will be finalized tomorrow. Will start the patient back on IV Rocephin now that we have a pathogen and repeat two sets of blood cultures. 2. Severe mitral regurgitation. This will be with elevated BNP, but clinically the patient does not have congestive heart failure. This will need to be addressed later as an outpatient once the patient finishes IV antibiotic. There is no indication for valve replacement at this time. 3. Severe scoliosis. PLAN Blood cultures one set today and one set tomorrow to document clearance of bacteremia. PICC line in the morning. Repeat CBC, ESR, CRP and blood cultures in a.m.. The patient will need 4 to 6 weeks of IV antibiotics based on clinical improvement. Case has been discussed with Dr. Aguila who will see the patient in followup after hospital discharge. Case has been discussed with Dr. Auguste and transfer to [facility] was cancelled.
[2019-07-05 20:00] VITALS: BP 119/57
[2019-07-06] VITALS: BP 111/59
[2019-07-06 04:00] VITALS: BP 109/66
[2019-07-06] MEDS: SLF 3 ML SYR IV SCH ×2 (05:48→14:54)
[2019-07-06 05:59] LABS: BASO % 0.2 % (0.0-1.0); HEMATOCRIT 30.5 % (36.0-47.0); HEMOGLOBIN 9.6 g/dl (12.0-15.5); LYMPH # 1.6 10^3/uL (1.5-5.0); LYMPH % 25.5 % (24.0-44.0); MEAN CORPUSCULAR HEMOGLOBIN 31.9 pg (27.0-33.0); MEAN CORPUSCULAR HGB CONC 31.5 g/dl (32.0-36.5); MEAN CORPUSCULAR VOLUME 101.3 fl (80.0-96.0); MONO # 0.4 10^3/uL (0.0-0.8); MONO % 6.6 % (0.0-5.0); NEUTROPHILS # 4.3 10^3/uL (1.5-8.5); NEUTROPHILS % 67.1 % (36.0-66.0); PLATELET COUNT, AUTOMATED 145 10^3/uL (150-450); RED BLOOD COUNT 3.01 10^6/uL (4.00-5.40); WHITE BLOOD COUNT 6.4 10^3/uL (4.0-10.0)
[2019-07-06 06:20] LABS: BLOOD UREA NITROGEN 9 MG/DL (7-18); C REACTIVE PROTEIN QUANTITATIV 0.72 MG/DL (0.00-0.30); CALCIUM LEVEL 8.2 MG/DL (8.8-10.2); CARBON DIOXIDE LEVEL 27 MEQ/L (21-32); CHLORIDE LEVEL 108 MEQ/L (98-107); CREATININE FOR GFR 0.56 MG/DL (0.55-1.30); GLOMERULAR FILTRATION RATE > 60.0 (>45); GLUCOSE, FASTING 93 MG/DL (70-100); POTASSIUM SERUM 4.2 MEQ/L (3.5-5.1); SODIUM LEVEL 141 MEQ/L (136-145)
[2019-07-06 06:27] LABS: ERYTHROCYTE SEDIMENTATION RATE 43 mm/hr (0-30)
[2019-07-06 07:30] VITALS: BP 112/57
[2019-07-06] MEDS ORDERED: CETIRIZINE (ZyrTEC) 5 MG/5 ML UDC DYE FREE PO SCH (09:00)
[2019-07-06] MEDS: ENOXAPARIN 40 MG/0.4 ML SYRINGE (J1650) SC SCH (09:01)
[2019-07-06 10:00] VITALS: BP 118/62
--- NOTE | 2019-07-06 10:16 | IPNPDOC ---
Subjective Date Seen The patient was seen on 07/06/19. Subjective Chief Complaint/HPI Patient is comfortable in no apparent distress. Offers no new complaints, resting comfortably scheduled for PICC line today General: Denies: ROS Unobtainable, Chills, Night Sweats, Fatigue, Malaise, Normal Appetite, Other Symptoms Constitutional: Denies: Chills, Fever, Malaise, Night Sweats, Weakness, Fatigue, Weight Loss, Lethargy, Other Skin: Denies: Rash, Lesions, Jaundice, Bruising, Itching, Dry, Breakdown, Nail Changes, Other Pulmonary: Denies: Dyspnea, Cough, Pleuritic Chest Pain, Other Symptoms Cardiovascular: Denies: Chest Pain, Palpitations, Orthopnea, Paroxysmal Noc. Dyspnea, Edema, Lt Headedness, Other Symptoms Gastrointestinal: Denies: Nausea, Vomiting, Abdominal Pain, Diarrhea, Constipation, Melena, Hematochezia, Other Symptoms Musculoskeletal: Denies: Neck Pain, Back Pain, Shoulder Pain, Arm Pain, Hand Pain, Leg Pain, Foot Pain, Joint Pain, Muscle Pain, Spasms, Other Symptoms Neurological: Denies: Weakness, Numbness, Incoordination, Change in speech, Confusion, Seizures, Other Symptoms Objective Physical Examination ENT Exam: Positive: Atraumatic, Mucous membr. moist/pink, Pharynx Normal Neck Exam: Positive: Supple Chest Exam: Positive: Clear to auscultation, Normal air movement Heart Exam: Positive: Rate Normal, Irregular Rhythm, Normal S1, Normal S2, Murmurs Telemetry: Positive: Atrial fibrillation Abdomen Exam: Positive: Normal bowel sounds, Soft Extremity Exam: Positive: Edema, Normal pulses Assessment /Plan Problems (1) Infectious endocarditis Status: Acute Problem Text: 69 year old female with a cardiac murmur, scoliosis seen by cardio Dr Aguila on 05/24/19 for this murmur and scheduled for an echo on 07/13/19 has been feeling sick for the past 2 weeks. Has been feeling tired fatigued and noticed petechaie on her legs . Last week she noticed swelling of her legs with incresed SOB so went to see PMD. 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 Could not rule out a sessile vegetation on the posterior mitral leaflet but no obvious ruptured chordae tendineae. Patient was called and told to come to the ED for possible endocarditis work up and management. Out of 3 blood cultures 2 Blood cultures are positive for gram positive cocci in chains, but third set is negative, IV antibiotics were DC'd by infectious disease. Dr. Aguila tried to do a MUNIR, but was unsuccessful as patient needs a pediatric probe to perform the procedure secondary to her anatomy Patient wanted me to be transferred to [facility] in [place], but transfer was canceled by Dr. Kelley after she spoke with Dr. Talbot regarding positive blood cultures and that patient can be treated here with a PICC line and IV antibiotics and a repeat MUNIR and possible arrangemnts for mitral valve replacement as an outpatient. PICC line to be placed in today and possibly and possibly will be discharged home once the home care arrangements are made today and patient will follow with cardiology as an outpatient as soon as possible. (2) Mitral valve regurgitation Status: Chronic Problem Text: MVP and severe Mitral regurgitation watch for CHF and fluid overload. Monitor I/O and daily weights. Appears euvolemic at present. 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 (3) Scoliosis Status: Acute Problem Text: Scoliosis with chronic back pain have to rule out discitis if blood cultures are positive or there are vegeta tions in the MUNIR Plan/VTE VTE Prophylaxis Ordered?: Yes VS, I&O, 24H, Fishbone Vital Signs/I&O Vital Signs Date Time Temp Pulse Resp B/P (MAP) Pulse Ox O2 Delivery O2 Flow Rate FiO2 07/06/19 07:30 97.8 82 18 112/57 (75) 98 07/02/19 09:23 Room Air I&O- Last 24 Hours up to 6 AM 07/06/19 06:00 Intake Total 650 ml Output Total 200 ml Balance 450 ml Laboratory Data 24H LABS Laboratory Tests 2 07/06/19 05:40: Immature Granulocyte % (Auto) 0.6, White Blood Count 6.4, Red Blood Count 3.01L, Hemoglobin 9.6L, Hematocrit 30.5L, Mean Corpuscular Volume 101.3H, Mean Corpuscular Hemoglobin 31.9, Mean Corpuscular Hemoglobin Concent 31.5L, Red Cell Distribution Width 18.5H, Platelet Count 145L, Neutrophils (%) (Auto) 67.1H, Lymphocytes (%) (Auto) 25.5, Monocytes (%) (Auto) 6.6H, Eosinophils (%) (Auto) 0.0, Basophils (%) (Auto) 0.2, Neutrophils # (Auto) 4.3, Lymphocytes # (Auto) 1.6, Monocytes # (Auto) 0.4, Eosinophils # (Auto) 0.0, Basophils # (Auto) 0.0, Nucleated Red Blood Cells % (auto) 0.0, Erythrocyte Sedimentation Rate 43H, Anion Gap 6L, Glomerular Filtration Rate > 60.0, Blood Urea Nitrogen 9, Creatinine 0.56, Sodium Level 141, Potassium Level 4.2, Chloride Level 108H, Carbon Dioxide Level 27, Calcium Level 8.2L, C-Reactive Protein, Quantitative 0.72H CBC/BMP Laboratory Tests 07/06/19 05:40 Red Blood Count 3.01 L, Mean Corpuscular Volume 101.3 H, Mean Corpuscular Hemoglobin 31.9, Mean Corpuscular Hemoglobin Concent 31.5 L, Red Cell Distribution Width 18.5 H, Neutrophils (%) (Auto) 67.1 H, Lymphocytes (%) (Auto) 25.5, Monocytes (%) (Auto) 6.6 H, Eosinophils (%) (Auto) 0.0, Basophils (%) (Auto) 0.2, Neutrophils # (Auto) 4.3, Lymphocytes # (Auto) 1.6, Monocytes # (Auto) 0.4, Eosinophils # (Auto) 0.0, Basophils # (Auto) 0.0, Calcium Level 8.2 L Microbiology Microbiology 07/06/19 Blood Culture, Received Pending 07/05/19 Blood Culture, Received Pending 07/02/19 Blood Culture - Preliminary, Resulted 07/02/19 Blood Culture - Final, Complete Streptococcus Salivarius 07/02/19 Blood Culture - Final, Complete Streptococcus Salivarius DOE VALENTINO MD Jul 06, 2019 10:16
[2019-07-06] MEDS ORDERED: LIDOCAINE 1% MDV 20ML VIAL As Ordered ONE (15:13)
[2019-07-06 16:20] VITALS: BP 120/58
[2019-07-06] MEDS: cefTRIAXone SOD 2 GM in D5W MINI-BAG PLUS 50 ML IV SCH (17:15)
--- NOTE | 2019-07-06 17:34 | REP ---
Procedure: PICC line insertion with Konrad The procedure was performed under the direct supervision of Dr. Munroe. The risks and benefits of the procedure were explained to the patient and informed consent was obtained. The left basilic vein was localized using ultrasound guidance. The skin was prepped and draped in a sterile fashion. 1% lidocaine was used as a local anesthetic. Using ultrasound guidance an attempt was made to cannulate the basilic vein, however, this was unsuccessful. The left brachial vein was localized using ultrasound guidance. 1% lidocaine was used as a local anesthetic. Using ultrasound guidance the brachial vein was cannulated and a 0.018 guidewire was inserted and advanced to the SVC using fluoroscopic guidance. The needle was removed and a 4.5 Cuban dilator and peel-away sheath was inserted over the guide wire. A 4.5 Cuban single lumen catheter was cut to length of 37 cm. The dilator was removed and the catheter was inserted over the guide wire with the tip ending in the SVC. The peel-away sheath was removed and the catheter was flushed with heparinized saline as per Hospital protocol. The catheter was affixed to the skin and a sterile dressing was applied. The patient tolerated the procedure well and there were no immediate complications. 0.2 minutes of fluoro time was utilized for this procedure. Electronically Signed by MAURO Edwards 07/06/2019 04:28 P Electronically Signed by William Munroe MD 07/06/2019 05:24 P
[2019-07-06] MEDS ORDERED: SODIUM CHLORIDE 0.9% INJ 10 ML SYR IV PRN (17:45)
[2019-07-06] MEDS ORDERED: SODIUM CHLORIDE 0.9% INJ 10 ML SYR IV SCH (18:00)
--- NOTE | 2019-07-07 13:56 | IPN ---
DATE OF SERVICE: 07/06/2019 My attending on this case is Dr. Mohinder Kelley. SUBJECTIVE: Kim was seen and examined this morning sitting in bed. She is excited for she will get to go home later today. She will have her peripherally inserted central catheter (PICC) line place later this morning, and then she will be discharged. She was just nervous for the procedure but excited to be going home. She understands that after her intravenous (IV) antibiotics are completed in about 4-6 weeks, she will need to have a transesophageal echocardiogram done in [place]. She is slightly nervous of this procedure, and all of her questions were answered. She denies having any fevers, chills, night sweats. She noticed that the lower extremity petechiae has improved since she has been started on antibiotic. Afebrile overnight. Denies any shortness of breath. Her last dose of vancomycin was on 07/03/2019. PHYSICAL EXAMINATION: Vital signs: Temperature 99.4, pulse 84, respirations 16, blood pressure 118/62 (80), pulse oximetry 98% on room air. General: This is a very pleasant 69-year-old female who does not appear in acute distress. Appropriately answering questions. Alert and oriented times three. HEENT: Very small face but atraumatic, normocephalic. Pupils are equal, round, and reactive. No lymphadenopathy noted. Lungs: Clear to auscultate bilaterally. No audible wheezing, rhonchi, or rales. No bibasilar crackles are noted. Heart: S1, S2 sounds with a significant holosystolic ejection murmur 3/6 radiating to the pericardium, best heard at the 5th intercostal space at the left near the sternal border. Abdomen: Soft, nontender. Positive bowel sounds in all four quadrants. Lower extremity: Trace edema at the ankles with minimal petechiae at the ankles, has improved significantly since admission. Blood cultures times two positive for Streptococcus salivarius. Repeat blood culture from 07/05/2019, negative for no growth. Antibiotics, ceftriaxone 2 grams every 24. LABORATORIES: WBC 6.4, hemoglobin 9.6, hematocrit 30.5, platelets 145. Chemistry: Sodium 141, potassium 4.2, chloride 108, carbon dioxide 27, BUN 9, creatinine 0.56, fasting glucose 93, calcium 8.2, pro-BNP 4389. IMPRESSION AND PLAN: 1. 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 Currently, on IV Rocephin. 2. Severe mitral regurgitation. Elevated brain natriuretic peptide (BNP), but clinically, the patient does not have decompensated heart failure. Will be needing to be addressed outpatient. Followup with Dr. Aguila on discharge. 3. Severe scoliosis. PLAN: The patient will be discharged. The patient will have the PICC line placed later today. She will have antibiotic, ceftriaxone 2 grams, administered prior to being discharged. She will have [facility] set up home infusion. Derek will meet with the patient tomorrow morning at 10 a.m. She will followup at Dr. Kelley's office in 2 weeks. She will continue with these antibiotics 4-6 weeks, pending clinical improvement. She will need antibiotic prophylaxis prior to dental procedures in the future of 2 grams 1 hour prior to the dental treatment. She will need to followup with cardiology as scheduled upon discharge. After completion of the antibiotics, she will still need to have the transesophageal echocardiogram in [place] to evaluate the extension of her valvular damage and if she needs a valve replacement. My prediction that she will need it. All of her questions were answered today, and the patient is safe to be discharged after PICC line placement.
== END 2019-07-06 18:37 | disposition home or self-care (01) | DRG 289 ==
LOC: M ED 09:21 → M ED INP 11:39 → M PCU 14:11
PROVIDERS: ADMIT Internal Medicine Nephrology; ATTEND Internal Medicine
PROC: B246ZZ4 Ultrasonography of Right and Left Heart, Transesophageal (ICD-10-PCS; 2019-07-03)
PROC: 02HV33Z Insertion of Infusion Device into Superior Vena Cava, Percutaneous Approach (ICD-10-PCS; principal; 2019-07-06 15:00)
DX: I33.0 Acute and subacute infective endocarditis (principal); R78.81 Bacteremia; I34.0 Nonrheumatic mitral (valve) insufficiency; I48.91 Unspecified atrial fibrillation; Z88.5 Allergy status to narcotic agent; E55.9 Vitamin D deficiency, unspecified; M10.9 Gout, unspecified; D69.6 Thrombocytopenia, unspecified; M41.9 Scoliosis, unspecified

== ENCOUNTER → 2019-07-09 | Outpatient (REF) | payer MEDICARE, OTHER ==
[2019-07-09 14:02] LABS: BASO % 0.1 % (0.0-1.0); HEMATOCRIT 31.6 % (36.0-47.0); HEMOGLOBIN 10.4 g/dl (12.0-15.5); LYMPH % 26.5 % (24.0-44.0); MEAN CORPUSCULAR HEMOGLOBIN 33.1 pg (27.0-33.0); MEAN CORPUSCULAR HGB CONC 32.9 g/dl (32.0-36.5); MEAN CORPUSCULAR VOLUME 100.6 fl (80.0-96.0); MONO # 0.5 10^3/uL (0.0-0.8); MONO % 6.4 % (0.0-5.0); NEUTROPHILS % 66.6 % (36.0-66.0); PLATELET COUNT, AUTOMATED 195 10^3/uL (150-450); RED BLOOD COUNT 3.14 10^6/uL (4.00-5.40); WHITE BLOOD COUNT 7.6 10^3/uL (4.0-10.0)
[2019-07-09 14:27] LABS: ALT/SGPT 14 U/L (12-78); BILIRUBIN,TOTAL 0.7 MG/DL (0.2-1.0); BLOOD UREA NITROGEN 9 MG/DL (7-18); CALCIUM LEVEL 8.3 MG/DL (8.8-10.2); CARBON DIOXIDE LEVEL 27 MEQ/L (21-32); CHLORIDE LEVEL 106 MEQ/L (98-107); CREATININE FOR GFR 0.53 MG/DL (0.55-1.30); GLOMERULAR FILTRATION RATE > 60.0 (>45); GLUCOSE, FASTING 102 MG/DL (70-100); SODIUM LEVEL 139 MEQ/L (136-145); TOTAL PROTEIN 7.2 GM/DL (6.4-8.2)
[2019-07-09 14:55] LABS: ERYTHROCYTE SEDIMENTATION RATE 49 mm/hr (0-30)
== END ==
LOC: M SHH 13:51
PROVIDERS: ATTEND Internal Medicine Infectious Disease
DX: I38 Endocarditis, valve unspecified (principal); B95.4 Other streptococcus as the cause of diseases classified elsewhere

== ENCOUNTER → 2019-07-16 | Outpatient (REF) | payer MEDICARE, OTHER ==
[~2019-07-16] MED LIST changes: +ASPI1CHW3 PO; +BIOF4GEL4 EXT; +CEFT50VL EXT; +CEFT50VL INJ; +HEPA1INJ8 IV; +MAGN400O53 PO; +METO1TAB87 PO; +PEPT262S PO; +SLF3ML IV; +TRIA0.5O EXT; +VITA-256 PO; +XARE20TA PO
[2019-07-16 14:06] LABS: BASO % 0.1 % (0.0-1.0); HEMATOCRIT 32.3 % (36.0-47.0); HEMOGLOBIN 10.7 g/dl (12.0-15.5); LYMPH # 1.8 10^3/uL (1.5-5.0); LYMPH % 25.5 % (24.0-44.0); MEAN CORPUSCULAR HEMOGLOBIN 33.2 pg (27.0-33.0); MEAN CORPUSCULAR HGB CONC 33.1 g/dl (32.0-36.5); MEAN CORPUSCULAR VOLUME 100.3 fl (80.0-96.0); MONO # 0.5 10^3/uL (0.0-0.8); MONO % 7.3 % (0.0-5.0); NEUTROPHILS # 4.6 10^3/uL (1.5-8.5); PLATELET COUNT, AUTOMATED 194 10^3/uL (150-450); RED BLOOD COUNT 3.22 10^6/uL (4.00-5.40); WHITE BLOOD COUNT 6.9 10^3/uL (4.0-10.0)
[2019-07-16 14:43] LABS: ALT/SGPT 12 U/L (12-78); BILIRUBIN,TOTAL 0.7 MG/DL (0.2-1.0); BLOOD UREA NITROGEN 9 MG/DL (7-18); C REACTIVE PROTEIN QUANTITATIV 0.94 MG/DL (0.00-0.30); CALCIUM LEVEL 8.8 MG/DL (8.8-10.2); CARBON DIOXIDE LEVEL 27 MEQ/L (21-32); CHLORIDE LEVEL 105 MEQ/L (98-107); CREATININE FOR GFR 0.48 MG/DL (0.55-1.30); GLOMERULAR FILTRATION RATE > 60.0 (>45); GLUCOSE, FASTING 100 MG/DL (70-100); POTASSIUM SERUM 4.1 MEQ/L (3.5-5.1); SODIUM LEVEL 140 MEQ/L (136-145); TOTAL PROTEIN 7.1 GM/DL (6.4-8.2)
[2019-07-16 15:01] LABS: ERYTHROCYTE SEDIMENTATION RATE 67 mm/hr (0-30)
== END ==
LOC: M SHH 13:40
PROVIDERS: ATTEND Internal Medicine Infectious Disease
DX: I38 Endocarditis, valve unspecified (principal); B95.4 Other streptococcus as the cause of diseases classified elsewhere

== ENCOUNTER → 2019-07-23 | Outpatient (REF) | payer MEDICARE, OTHER ==
[2019-07-23 16:06] LABS: HEMATOCRIT 30.5 % (36.0-47.0); HEMOGLOBIN 9.8 g/dl (12.0-15.5); LYMPH # 1.7 10^3/uL (1.5-5.0); LYMPH % 26.3 % (24.0-44.0); MEAN CORPUSCULAR HEMOGLOBIN 32.2 pg (27.0-33.0); MEAN CORPUSCULAR HGB CONC 32.1 g/dl (32.0-36.5); MEAN CORPUSCULAR VOLUME 100.3 fl (80.0-96.0); MONO # 0.5 10^3/uL (0.0-0.8); MONO % 7.3 % (0.0-5.0); NEUTROPHILS # 4.4 10^3/uL (1.5-8.5); NEUTROPHILS % 66.2 % (36.0-66.0); PLATELET COUNT, AUTOMATED 223 10^3/uL (150-450); RED BLOOD COUNT 3.04 10^6/uL (4.00-5.40); WHITE BLOOD COUNT 6.6 10^3/uL (4.0-10.0)
[2019-07-23 16:45] LABS: ERYTHROCYTE SEDIMENTATION RATE 61 mm/hr (0-30)
[2019-07-23 16:47] LABS: ALBUMIN 3.1 GM/DL (3.2-5.2); ALT/SGPT 13 U/L (12-78); BILIRUBIN,TOTAL 0.9 MG/DL (0.2-1.0); BLOOD UREA NITROGEN 11 MG/DL (7-18); C REACTIVE PROTEIN QUANTITATIV 0.81 MG/DL (0.00-0.30); CALCIUM LEVEL 8.6 MG/DL (8.8-10.2); CARBON DIOXIDE LEVEL 27 MEQ/L (21-32); CHLORIDE LEVEL 105 MEQ/L (98-107); CREATININE FOR GFR 0.51 MG/DL (0.55-1.30); GLOMERULAR FILTRATION RATE > 60.0 (>45); GLUCOSE, FASTING 101 MG/DL (70-100); POTASSIUM SERUM 3.9 MEQ/L (3.5-5.1); SODIUM LEVEL 141 MEQ/L (136-145); TOTAL PROTEIN 6.9 GM/DL (6.4-8.2)
== END ==
LOC: M SHH 15:05
PROVIDERS: ATTEND Internal Medicine Infectious Disease
DX: I38 Endocarditis, valve unspecified (principal); B95.4 Other streptococcus as the cause of diseases classified elsewhere

== ENCOUNTER → 2019-07-30 | Outpatient (REF) | payer MEDICARE, OTHER ==
[~2019-07-30] MED LIST changes: -ASPI1CHW3 PO; -BIOF4GEL4 EXT; -CEFT50VL EXT; -CEFT50VL INJ; -HEPA1INJ8 IV; -MAGN400O53 PO; -METO1TAB87 PO; -PEPT262S PO; -SLF3ML IV; -TRIA0.5O EXT; -VITA-256 PO; -XARE20TA PO
[2019-07-30 14:53] LABS: BASO % 0.2 % (0.0-1.0); HEMATOCRIT 32.4 % (36.0-47.0); HEMOGLOBIN 10.5 g/dl (12.0-15.5); LYMPH # 1.4 10^3/uL (1.5-5.0); LYMPH % 23.5 % (24.0-44.0); MEAN CORPUSCULAR HEMOGLOBIN 32.6 pg (27.0-33.0); MEAN CORPUSCULAR HGB CONC 32.4 g/dl (32.0-36.5); MEAN CORPUSCULAR VOLUME 100.6 fl (80.0-96.0); MONO # 0.5 10^3/uL (0.0-0.8); MONO % 8.5 % (0.0-5.0); NEUTROPHILS # 4.1 10^3/uL (1.5-8.5); NEUTROPHILS % 67.3 % (36.0-66.0); PLATELET COUNT, AUTOMATED 240 10^3/uL (150-450); RED BLOOD COUNT 3.22 10^6/uL (4.00-5.40); WHITE BLOOD COUNT 6.1 10^3/uL (4.0-10.0)
[2019-07-30 15:21] LABS: ALBUMIN 3.4 GM/DL (3.2-5.2); ALT/SGPT 12 U/L (12-78); BILIRUBIN,TOTAL 0.5 MG/DL (0.2-1.0); BLOOD UREA NITROGEN 9 MG/DL (7-18); C REACTIVE PROTEIN QUANTITATIV 0.31 MG/DL (0.00-0.30); CALCIUM LEVEL 9.1 MG/DL (8.8-10.2); CARBON DIOXIDE LEVEL 27 MEQ/L (21-32); CHLORIDE LEVEL 106 MEQ/L (98-107); CREATININE FOR GFR 0.57 MG/DL (0.55-1.30); GLOMERULAR FILTRATION RATE > 60.0 (>45); GLUCOSE, FASTING 97 MG/DL (70-100); POTASSIUM SERUM 4.1 MEQ/L (3.5-5.1); SODIUM LEVEL 139 MEQ/L (136-145); TOTAL PROTEIN 7.8 GM/DL (6.4-8.2)
[2019-07-30 15:25] LABS: ERYTHROCYTE SEDIMENTATION RATE 49 mm/hr (0-30)
== END ==
LOC: M SHH 13:54
PROVIDERS: ATTEND Internal Medicine Infectious Disease
DX: I38 Endocarditis, valve unspecified (principal); B95.4 Other streptococcus as the cause of diseases classified elsewhere

== ENCOUNTER → 2019-08-06 | Outpatient (REF) | payer MEDICARE, OTHER ==
[~2019-08-06] MED LIST changes: +ASPI81CH44 PO; +BIOF4GEL4 EXT; +CEFT50VL EXT; +CEFT50VL INJ; +HEPA1INJ8 IV; +MAGN400O53 PO; +PEPT262S PO; +SLF3ML IV; +TRIA0.5O EXT; +VITA-256 PO
[2019-08-06 18:01] LABS: BASO % 0.2 % (0.0-1.0); EOS % 0.1 % (0.0-3.0); HEMATOCRIT 34.5 % (36.0-47.0); HEMOGLOBIN 11.2 g/dl (12.0-15.5); LYMPH # 1.9 10^3/uL (1.5-5.0); LYMPH % 14.6 % (24.0-44.0); MEAN CORPUSCULAR HGB CONC 32.5 g/dl (32.0-36.5); MEAN CORPUSCULAR VOLUME 98.6 fl (80.0-96.0); MONO % 7.8 % (0.0-5.0); PLATELET COUNT, AUTOMATED 234 10^3/uL (150-450); WHITE BLOOD COUNT 12.9 10^3/uL (4.0-10.0)
[2019-08-06 18:23] LABS: ALBUMIN 3.2 GM/DL (3.2-5.2); ALT/SGPT 10 U/L (12-78); BILIRUBIN,TOTAL 1.1 MG/DL (0.2-1.0); BLOOD UREA NITROGEN 11 MG/DL (7-18); CALCIUM LEVEL 8.9 MG/DL (8.8-10.2); CARBON DIOXIDE LEVEL 25 MEQ/L (21-32); CHLORIDE LEVEL 100 MEQ/L (98-107); GLOMERULAR FILTRATION RATE > 60.0 (>45); GLUCOSE, FASTING 85 MG/DL (70-100); POTASSIUM SERUM 3.1 MEQ/L (3.5-5.1); SODIUM LEVEL 135 MEQ/L (136-145); TOTAL PROTEIN 7.3 GM/DL (6.4-8.2)
[2019-08-06 18:56] LABS: ERYTHROCYTE SEDIMENTATION RATE 53 mm/hr (0-30)
== END ==
LOC: M SHH 17:14 → M LAB REF 17:14
PROVIDERS: ATTEND Internal Medicine Infectious Disease
DX: I38 Endocarditis, valve unspecified (principal); B95.4 Other streptococcus as the cause of diseases classified elsewhere; R19.7 Diarrhea, unspecified

== ENCOUNTER → 2019-08-06 | Outpatient (REF) | payer MEDICARE, OTHER ==
[2019-08-06 13:15] LABS: CLOSTRIDIUM DIFFICILE PCR NEGATIVE (NEGATIVE)
== END ==
LOC: M LAB REF 11:27
PROVIDERS: ATTEND Family Medicine
DX: R19.7 Diarrhea, unspecified (principal)

== ENCOUNTER 2019-08-08 23:28 | Inpatient (IN) | payer MEDICARE, OTHER ==
[~2019-08-08] VITALS: Ht 152.4 cm; Wt 48.9 kg
[~2019-08-08 23:28] MED LIST changes: -ASPI81CH44 PO; -BIOF4GEL4 EXT; -CEFT50VL EXT; -CEFT50VL INJ; -HEPA1INJ8 IV; -MAGN400O53 PO; -PEPT262S PO; -SLF3ML IV; -TRIA0.5O EXT; -VITA-256 PO
[2019-08-09] MEDS ORDERED: ACETAMINOPHEN 325 MG TAB As Ordered ONE (00:22)
[2019-08-09] MEDS ORDERED: ACETAMINOPHEN SUSP DYE FREE 160 MG/5 ML UDC PO ONE (00:30)
[2019-08-09 00:41] LABS: VENOUS HCO3 22.1 MEQ/L (23.0-27.0); VENOUS PARTIAL PRESSURE CO2 35.8 mmHg (38.0-50.0); VENOUS PARTIAL PRESSURE O2 34.1 mmHg (30.0-50.0); VENOUS PH 7.408 UNITS (7.330-7.430); VENOUS TOTAL CO2 23.2 MEQ/L (24.0-28.0)
[2019-08-09 00:42] LABS: VENOUS O2 SATURATION 62.2 % (60.0-80.0)
[2019-08-09 00:43] LABS: INR 1.19; PROTHROMBIN TIME 14.8 SECONDS (11.8-14.0)
[2019-08-09 00:44] LABS: BASO # 0.1 10^3/uL (0.0-0.2); BASO % 0.4 % (0.0-1.0); HEMATOCRIT 36.4 % (36.0-47.0); HEMOGLOBIN 12.3 g/dl (12.0-15.5); LYMPH # 0.9 10^3/uL (1.5-5.0); LYMPH % 3.5 % (24.0-44.0); MEAN CORPUSCULAR HEMOGLOBIN 32.2 pg (27.0-33.0); MEAN CORPUSCULAR HGB CONC 33.8 g/dl (32.0-36.5); MEAN CORPUSCULAR VOLUME 95.3 fl (80.0-96.0); MONO % 4.1 % (0.0-5.0); NEUTROPHILS # 22.4 10^3/uL (1.5-8.5); NEUTROPHILS % 90.2 % (36.0-66.0); PARTIAL THROMBOPLASTIN TIME 37.2 SECONDS (25.0-38.4); PLATELET COUNT, AUTOMATED 268 10^3/uL (150-450); RED BLOOD COUNT 3.82 10^6/uL (4.00-5.40); WHITE BLOOD COUNT 24.9 10^3/uL (4.0-10.0)
[2019-08-09 00:59] LABS: ALT/SGPT 12 U/L (12-78); AMYLASE 52 U/L (25-115); BILIRUBIN,DIRECT 0.4 MG/DL (0.0-0.2); BILIRUBIN,TOTAL 0.9 MG/DL (0.2-1.0); BLOOD UREA NITROGEN 13 MG/DL (7-18); CALCIUM LEVEL 8.9 MG/DL (8.8-10.2); CARBON DIOXIDE LEVEL 23 MEQ/L (21-32); CHLORIDE LEVEL 96 MEQ/L (98-107); CREATININE FOR GFR 0.67 MG/DL (0.55-1.30); GLOMERULAR FILTRATION RATE > 60.0 (>45); GLUCOSE, FASTING 123 MG/DL (70-100); POTASSIUM SERUM 2.8 MEQ/L (3.5-5.1); SODIUM LEVEL 132 MEQ/L (136-145); TOTAL PROTEIN 7.2 GM/DL (6.4-8.2); TROPONIN I 0.03 NG/ML (< 0.10)
[2019-08-09] MEDS ORDERED: TRIA0.5O EXT (01:07)
[2019-08-09] MEDS ORDERED: CEFT50VL EXT (01:07)
[2019-08-09] MEDS ORDERED: KCL 10MEQ/100ML SWI (KRUN) 10 MEQ in IV 1 EA IV ONE (01:15)
--- NOTE | 2019-08-09 01:28 | HPEPDOC ---
[facility] Medical History & Physical Date of Admission Aug 09, 2019 Date of Service: Aug 09, 2019 Primary Care Physician: Susan Briseno MD Attending Physician: LYNNETTE NEGRON MD History and Physical TIME OF SERVICE: 4:25 AM CHIEF COMPLAINT: Confusion HISTORY OF PRESENT ILLNESS: This is a 69-year-old female who was brought in by her for evaluation because she seemed disoriented, the things she said were not making sense and she had not been eating very much for the last for 5 days. Associated symptoms included nonbloody watery diarrhea for 5 days, fevers, chills, and weight loss. She was diagnosed with bacterial endocarditis about 1 month ago and has a home RN who administers her abx as scheduled. She denies pain, redness or swelling of the left upper extremity. After the patient received IV fluid and antibiotics in the ED her mental status improved. REVIEW OF SYSTEMS: 12 point review of systems negative except as listed in HPI PAST MEDICAL/ SURGICAL HISTORY: Bacterial endocarditis, currently on Rocephin. Mitral valve prolapse / Severe mitral valve regurgitation. Paroxysmal Atrial fibrillation ? Scoliosis. Status post tonsillectomy SOCIAL HISTORY: Nonsmoker Lives with her FAMILY HISTORY: Is adopted, therefore she has no family history ALLERGIES: Please see below. HOME MEDICATIONS: Please see below. PHYSICAL EXAMINATION: VITAL SIGNS: Please see below. GENERAL APPEARANCE: Well-nourished, well-developed, not in apparent distress HEENT: Normocephalic, atraumatic, mucous members slightly dry CARDIOVASCULAR: Regular rate and rhythm. murmur audible. Extremities are warm and well-perfused. There is no lower extremity edema LUNGS: . Clear to auscultation bilaterally on room air ABDOMEN: Soft and nontender on palpation MUSCULOSKELETAL: Range of motion intact in all 4 extremities. The PICC at the left upper extremity is intact. INTEGUMENT: The skin surrounding the PICC line is not red, not swollen and not tender on palpation. NEUROLOGICAL: Cranial nerves 2-12 are grossly intact. Speech is not dysarthric PSYCHIATRIC: Alert and oriented to person, place and time, able to understand and follow commands LABORATORY DATA: See below. MICROBIOLOGY: Please see below. ASSESSMENT: Ms Servin is a 69-year-old female the past medical history of bacterial endocarditis, mitral valve prolapse, paroxysmal atrial fibrillation, and sco liosis who is admitted for evaluation of sepsis possibly due to diarrhea. PLAN: 1. Sepsis possibly due to diarrhea Diarrhea may be viral or due to C.diff SIRS criteria include Temp of 101.7, heart rate of 111, and WBC count of 24.9 The lactic acid was 2.9 and the CRP was 23 Other symptoms include transient confusion which has since resolved She also had nondiabetic hyperglycemia She received vancomycin and IV fluids in the ED NEW2S Score = 6 points = Medium risk = frequent monitoring required Plan: admit to PCU / telemetry / complete Sepsis protocol w repeat lactic acid and a pro-calcitonin/switch to Zosyn pending blood cx and stool study results/ Acetaminophen PRN for fever / contact precautions pending C.diff results 2. Hypokalemia Likely due to diarrhea Potassium was 2.8 Calcium was within normal limits Plan: Telemetry/follow-up EKG and magnesium / replete potassium as needed 3. Subacute Bacterial endocarditis Diagnosed about 1 month ago She was on Rocephin at home Plan: Continue Zosyn pending C. difficile results / a time team may consider ID consult 4. Paroxysmal Atrial fibrillation ? One of the EKGs done during the recent hospital admission showed atrial fibrillation. CHADS VASC Score to determine risk of stroke = 2 therefore she should be started on AC to prevent the risk of stroke She has a history of mitral valve prolapse and severe mitral valve regurg , but there is no mention of mitral valve stenosis. Plan: f/u repeat EKG/ start rivaroxaban DVT prophylaxis with rivaroxaban Disposition pending clinical course Vital Signs Vital Signs Date Time Temp Pulse Resp B/P (MAP) Pulse Ox O2 Delivery O2 Flow Rate FiO2 08/09/19 00:56 101.7 96 18 101/57 (72) 100 Laboratory Data Labs 24H Laboratory Tests 2 08/09/19 00:01: Immature Granulocyte % (Auto) 1.8, Neutrophils (%) (Auto) 90.2H, Lymphocytes (%) (Auto) 3.5L, Monocytes (%) (Auto) 4.1, Eosinophils (%) (Auto) 0.0, Basophils (%) (Auto) 0.4, Neutrophils # (Auto) 22.4H, Lymphocytes # (Auto) 0.9L, Monocytes # (Auto) 1.0H, Eosinophils # (Auto) 0.0, Basophils # (Auto) 0.1, Nucleated Red Blood Cells % (auto) 0.0, Prothrombin Time 14.8H, Prothromb Time International Ratio 1.19, Activated Partial Thromboplast Time 37.2, Venous Blood pH 7.408, Venous Blood Partial Pressure CO2 35.8L, Venous Blood Partial Pressure O2 34.1, Venous Blood Total Carbon Dioxide 23.2L, Venous Blood HCO3 22.1L, Venous Blood Oxygen Saturation 62.2, Venous Blood Base Excess -2.0, Anion Gap 13, Glomerular Filtration Rate > 60.0, Lactic Acid Level 2.9*H, Calcium Level 8.9, Total Bilirubin 0.9, Direct Bilirubin 0.4H, Aspartate Amino Transf (AST/SGOT) 8, Alanine Aminotransferase (ALT/SGPT) 12, Alkaline Phosphatase 109, Troponin I 0.03, C-Reactive Protein, Quantitative 23.30H, Total Protein 7.2, Albumin 3.0L, Albumin/Globulin Ratio 0.71L, Amylase Level 52 08/09/19 01:15: CBC/BMP Laboratory Tests 08/09/19 00:01 Microbiology Microbiology 08/09/19 Urine Culture, Ordered Pending 08/09/19 Blood Culture, Received Pending 08/09/19 Blood Culture, Received Pending Home Medications Scheduled Ceftriaxone Sodium (Ceftriaxone) 500 Mg Vial, 400 MG INJ QPM PREMADE SYRINGE (400MG) VIA PICC LINE, TAKES AT 1600 Cetirizine Hcl (Cetirizine HCl) 1 Mg/1 Ml Solution, 5 ML PO BID Cholecalciferol (Vitamin D3) (Vitamin D3) 1,000 Unit Tab.chew, 2,000 UNIT PO QPM AFTER DINNER Heparin Sodium,Porcine/Pf (Heparin 10 Unit/10 ml (1/ml)) 1 Unit/1 Ml Syringe, 1 DOSE IV QPM GIVEN AFTER SECOND DOSE OF SALINE FLUSH AFTER THE CEFTRIAXONE DOSE AT 1600; VIA PICC LINE Multivit-Min/Iron/Folic/Vit K1 (Centrum Chewables Adults Tab) 1 Each Tab.chew, 1 TAB PO DAILY Saline Lock Flush (Normal Saline Flush) 3 Ml Syringe, 3 ML IV BID BEFORE AND AFTER CEFTRIAXONE DOSE AT 1600; VIA PICC LINE Scheduled PRN Aspirin (Aspirin) 81 Mg Tab.chew, 81 MG PO Q4H PRN for PAIN Bismuth Subsalicylate (Pepto-Bismol) 262 Mg/15 Ml Oral.susp, 15 ML PO Q4H PRN for DIARRHEA Magnesium Hydroxide (Milk of Magnesia) 400 Mg/5 Ml Oral.susp, 1,200 MG PO DAILY PRN for CONSTIPATION Menthol (Biofreeze) 118 Ml Gel..ml., 1 DOSE EXT QID PRN for PAIN USES ON NECK AND LOWER BACK Triamcinolone Acetonide (Triamcinolone Acetonide) 15 Gm Oint...g., 1 DOSE EXT BID PRN for PSORIASIS Allergies Coded Allergies: codeine (Verified Adverse Reaction, Intermediate, severe PRADHAN, 03/27/19) A-FIB/CHADSVASC A-FIB History Current/History of A-Fib/PAF?: Yes Current PO Anticoag Therapy: Yes Age/Risk Factor Scoring CHADSVASC: CHADSVASC Response (Comments) Value Age Risk Factor Age 65-74 years old 1 Gender Risk Factor Female 1 Hx of CHF No 0 Hx of HTN No 0 Hx of Stroke/TIA/or VTE No 0 Hx of Diabetes No 0 Hx of Vascular Disease Yes 1 Total 3 Treatment Treatment ordered: Rivaroxaban LYNNETTE NEGRON MD Aug 09, 2019 01:28
[2019-08-09] MEDS ORDERED: POTASSIUM CHL PWD 20 MEQ PACKET PO ONE (01:30)
[2019-08-09] MEDS ORDERED: VANCOMYCIN HCL 1,000 MG, VIAL MATE ADAPTER 1 EACH in D5W 250 ML IV ONE ×2 (01:30→08:15)
[2019-08-09 01:51] LABS: INFLUENZA A AMPLIFICATION NEGATIVE (NEGATIVE); INFLUENZA B AMPLIFICATION NEGATIVE (NEGATIVE)
[2019-08-09] MEDS: KCL 40MEQ in NS 1000ML 1,000 ML IV SCH ×2 (01:55→05:59)
[2019-08-09] MEDS ORDERED: CEFT50VL INJ (02:00)
[2019-08-09] MEDS ORDERED: BIOF4GEL4 EXT (02:00)
[2019-08-09] MEDS ORDERED: PEPT262S PO (02:00)
[2019-08-09] MEDS ORDERED: VITA-256 PO (02:00)
[2019-08-09] MEDS ORDERED: SLF3ML IV (02:00)
[2019-08-09] MEDS ORDERED: ASPI81CH44 PO (02:00)
[2019-08-09] MEDS ORDERED: HEPA1INJ8 IV (02:00)
[2019-08-09] MEDS ORDERED: MAGN400O53 PO (02:00)
[2019-08-09] MEDS: PIPERACILLIN/TAZOBACTAM SOD 3.375 GM in D5W MINI-BAG PLUS 50 ML IV SCH ×4 (04:33→22:06)
[2019-08-09 04:39] LABS: APPEARANCE, URINE CLEAR (CLEAR); BACTERIA, URINE AUTO NEGATIVE (NEGATIVE); BILIRUBIN, URINE AUTO NEGATIVE (NEGATIVE); BLOOD, URINE BLOOD 1+ (NEGATIVE); COLOR, URINE YELLOW (YELLOW); GLUCOSE, URINE (UA) AUTO NEGATIVE (NEGATIVE); KETONE, URINE AUTO NEGATIVE (NEGATIVE); LEUKOCYTE ESTERASE, URINE AUTO TRACE (NEGATIVE); MUCUS, URINE SMALL (NEGATIVE); NITRITE, URINE AUTO NEGATIVE (NEGATIVE); PROTEIN, URINE AUTO NEGATIVE (NEGATIVE); RBC, URINE AUTO 2 /HPF (0-3); SPECIFIC GRAVITY URINE AUTO 1.006 (1.002-1.035); SQUAMOUS EPITHELIAL CELL UR AU 1 /HPF (0-6); TRANSITIONAL EPITHELIAL AUTO 1 /HPF; UROBILINOGEN, URINE AUTO 0.2 mg/dL (0.0-2.0); WBC, URINE AUTO 8 /HPF (0-3)
[2019-08-09] MEDS ORDERED: PINK BISMUTH SUSP 524MG/30ML ORAL SYRINGE PO PRN (04:45)
[2019-08-09] MEDS ORDERED: ASPIRIN 81 MG CHEW TABLET PO PRN (04:45)
[2019-08-09] MEDS ORDERED: MOM 30ML SUSPENSION UDC PO PRN (04:45)
[2019-08-09] MEDS ORDERED: HEPARIN SOD (PORCINE) 5000 UNITS/ML VIAL SC SCH (06:00)
[2019-08-09] MEDS ORDERED: ACETAMINOPHEN 650MG ER TAB (TYLENOL ARTHRITIS) PO PRN (06:45)
[2019-08-09 07:19] LABS: CLOSTRIDIUM DIFFICILE PCR NEGATIVE (NEGATIVE)
[2019-08-09 08:00] VITALS: BP_SYST 113; BP_SYST 116; BP_SYST 86; BP_DIAS 52; BP_DIAS 69; BP_DIAS 70; BP_DIAS 71
[2019-08-09] MEDS ORDERED: VANCOMYCIN HCL 1,000 MG, VIAL MATE ADAPTER 1 EACH in D5W 250 ML IV SCH (08:00)
[2019-08-09] MEDS: CETIRIZINE (ZyrTEC) 5 MG/5 ML UDC DYE FREE PO SCH ×2 (08:48→22:21)
[2019-08-09] MEDS: MULTIVITAMINS CHILDREN'S CHEWABLE TABLET PO SCH (08:48)
[2019-08-09 08:51] LABS: BASO # 0.1 10^3/uL (0.0-0.2); BASO % 0.3 % (0.0-1.0); HEMATOCRIT 28.9 % (36.0-47.0); LYMPH # 1.8 10^3/uL (1.5-5.0); LYMPH % 7.1 % (24.0-44.0); MEAN CORPUSCULAR HEMOGLOBIN 32.8 pg (27.0-33.0); MEAN CORPUSCULAR HGB CONC 33.2 g/dl (32.0-36.5); MEAN CORPUSCULAR VOLUME 98.6 fl (80.0-96.0); MONO # 1.3 10^3/uL (0.0-0.8); MONO % 5.1 % (0.0-5.0); NEUTROPHILS # 21.4 10^3/uL (1.5-8.5); NEUTROPHILS % 86.2 % (36.0-66.0); PLATELET COUNT, AUTOMATED 199 10^3/uL (150-450); RED BLOOD COUNT 2.93 10^6/uL (4.00-5.40); WHITE BLOOD COUNT 24.8 10^3/uL (4.0-10.0)
[2019-08-09 08:54] LABS: HEMOGLOBIN 9.6 g/dl (12.0-15.5)
[2019-08-09] MEDS ORDERED: SLF 3 ML SYR IV SCH (09:00)
[2019-08-09 09:14] LABS: BLOOD UREA NITROGEN 12 MG/DL (7-18); CALCIUM LEVEL 7.8 MG/DL (8.8-10.2); CARBON DIOXIDE LEVEL 21 MEQ/L (21-32); CHLORIDE LEVEL 115 MEQ/L (98-107); CREATININE FOR GFR 0.54 MG/DL (0.55-1.30); GLOMERULAR FILTRATION RATE > 60.0 (>45); GLUCOSE, FASTING 129 MG/DL (70-100); POTASSIUM SERUM 4.9 MEQ/L (3.5-5.1); SODIUM LEVEL 142 MEQ/L (136-145)
[2019-08-09] MEDS ORDERED: VANCOMYCIN INTERMITTENT/PULSE DOSING BY CLINICAL PHARMACIST PER DOSING PROTOCOL XX SCH (09:30)
--- NOTE | 2019-08-09 09:37 | PHACANCOPD ---
PHARMACY VANCOMYCIN DOSING Pt Demographics Demographics Patient Age:69 , Weight:45.020 , Gender: female Adjusted Body Weight Date: 08/09/19, Adjusted Body Weight: [45] Kg Events Past 24 Hours Events Past 24 Hours: YES: Other Vancomycin Vancomycin Target Ranges: 15-20 mcg/ml Vancomycin Load Y/N: Yes Load Dose Date Time Vancomycin Load Dose: 08/09: Pt received 1G IV vanco in Ed @03 and 1G IV @09 Vancomycin Dose Date: 08/09/19. Current Vancomycin Dose: intermittent dosing Intermittent Dosing?: Yes Labs Labs Vital Signs Date Time Temp Pulse Resp B/P (MAP) Pulse Ox O2 Delivery O2 Flow Rate FiO2 08/09/19 06:28 80 97 08/09/19 06:13 85 100 08/09/19 05:58 82 99 08/09/19 05:43 85 99 08/09/19 05:28 95 92 08/09/19 05:15 104/62 (76) 08/09/19 05:13 83 98 08/09/19 05:00 117/64 (81) 08/09/19 04:45 109/60 (76) 08/09/19 04:43 89 99 08/09/19 04:31 120/58 (78) 08/09/19 04:00 100/57 (71) 08/09/19 03:58 88 94 08/09/19 03:45 92/52 (65) 08/09/19 03:43 86 96 08/09/19 03:30 107/63 (78) 08/09/19 03:28 92 95 08/09/19 03:15 92/51 (65) 08/09/19 03:13 95 99 08/09/19 03:00 99/59 (72) 08/09/19 02:58 95 98 08/09/19 02:45 104/64 (77) 08/09/19 02:43 95 97 08/09/19 02:30 102/61 (75) 08/09/19 02:28 100 97 08/09/19 02:15 107/59 (75) 08/09/19 02:13 99 96 08/09/19 02:00 105/56 (72) 08/09/19 01:58 100 97 08/09/19 01:45 113/55 (74) 08/09/19 01:43 105 97 08/09/19 01:30 101/55 (70) 08/09/19 01:28 97 96 08/09/19 01:15 108/53 (71) 08/09/19 01:13 102 98 08/09/19 01:00 104/54 (71) 08/09/19 00:58 99 98 08/09/19 00:56 101.7 96 18 101/57 (72) 100 08/09/19 00:45 101/57 (72) 08/09/19 00:43 102 99 08/09/19 00:30 113/58 (76) 08/09/19 00:28 106 98 08/09/19 00:18 121/57 (78) 08/09/19 00:13 105 99 08/08/19 23:58 110 99 08/08/19 23:43 111 99 08/08/19 23:35 136/62 (86) Laboratory Tests 08/09/19 00:01: White Blood Count 24.9H, Red Blood Count 3.82L, Hemoglobin 12.3, Hematocrit 36.4, Mean Corpuscular Volume 95.3, Mean Corpuscular Hemoglobin 32.2, Mean Corpuscular Hemoglobin Concent 33.8, Red Cell Distribution Width 15.1H, Platelet Count 268, Immature Granulocyte % (Auto) 1.8, Neutrophils (%) (Auto) 90.2H, Lymphocytes (%) (Auto) 3.5L, Monocytes (%) (Auto) 4.1, Eosinophils (%) (Auto) 0.0, Basophils (%) (Auto) 0.4, Neutrophils # (Auto) 22.4H, Lymphocytes # (Auto) 0.9L, Monocytes # (Auto) 1.0H, Eosinophils # (Auto) 0.0, Basophils # (Auto) 0.1, Nucleated Red Blood Cells % (auto) 0.0, Prothrombin Time 14.8H, Prothromb Time International Ratio 1.19, Activated Partial Thromboplast Time 37.2, Venous Blood pH 7.408, Venous Blood Partial Pressure CO2 35.8L, Venous Blood Partial Pressure O2 34.1, Venous Blood Total Carbon Dioxide 23.2L, Venous Blood HCO3 22.1L, Venous Blood Oxygen Saturation 62.2, Venous Blood Base Excess -2.0, Sodium Level 132L, Potassium Level 2.8*L, Chloride Level 96L, Carbon Dioxide Level 23, Anion Gap 13, Blood Urea Nitrogen 13, Creatinine 0.67, Glomerular Filtration Rate > 60.0, Fasting Glucose 123H, Lactic Acid Level 2.9*H, Calcium Level 8.9, Magnesium Level 2.0, Total Bilirubin 0.9, Direct Bilirubin 0.4H, Aspartate Amino Transf (AST/SGOT) 8, Alanine Aminotransferase (ALT/SGPT) 12, Alkaline Phosphatase 109, Troponin I 0.03, C-Reactive Protein, Quantitative 23.30H, Total Protein 7.2, Albumin 3.0L, Albumin/Globulin Ratio 0.71L, Amylase Level 52, Procalcitonin [Pending] 08/09/19 01:15: Influenza Type A (RT-PCR) NEGATIVE, Influenza Type B (RT-PCR) NEGATIVE 08/09/19 04:26: Urine Color YELLOW, Urine Appearance CLEAR, Urine pH 6.0, Urine Specific [place] 1.006, Urine Protein NEGATIVE, Urine Glucose (Auto)(UA) NEGATIVE, Urine Ketones (Auto) NEGATIVE, Urine Blood 1+H, Urine Nitrite NEGATIVE, Urine Bilirubin NEGATIVE, Urine Urobilinogen 0.2, Urine Leukocyte Esterase (Auto) TRACEH, Urine WBC (Auto) 8H, Urine RBC (Auto) 2, Urine Hyaline Casts (Auto) 0, Urine Bacteria (Auto) NEGATIVE, Urine Squamous Epithelial Cells 1, Urine Transitional Epithelial Cells 1, Urine Mucus (Auto) SMALL, Urine Sperm (Auto) 08/09/19 04:44: Lactic Acid Level 2.5*H, Clostridium difficile [id number] PRESUMPTIVE NEGATIVE, Clostridium difficile Toxin (PCR) NEGATIVE 08/09/19 08:39: White Blood Count 24.8H, Red Blood Count 2.93L, Hemoglobin 9.6#L, Hematocrit 28.9L, Mean Corpuscular Volume 98.6H, Mean Corpuscular Hemoglobin 32.8, Mean Corpuscular Hemoglobin Concent 33.2, Red Cell Distribution Width 15.4H, Platelet Count 199, Immature Granulocyte % (Auto) 1.3, Neutrophils (%) (Auto) 86.2H, Lymphocytes (%) (Auto) 7.1L, Monocytes (%) (Auto) 5.1H, Eosinophils (%) (Auto) 0.0, Basophils (%) (Auto) 0.3, Neutrophils # (Auto) 21.4H, Lymphocytes # (Auto) 1.8, Monocytes # (Auto) 1.3H, Eosinophils # (Auto) 0.0, Basophils # (Auto) 0.1, Nucleated Red Blood Cells % (auto) 0.0, Sodium Level 142#, Potassium Level 4.9#, Chloride Level 115H, Carbon Dioxide Level 21, Anion Gap 6L, Blood Urea Nitrogen 12, Creatinine 0.54L, Glomerular Filtration Rate > 60.0, Fasting Glucose 129H, Calcium Level 7.8L, Magnesium Level 2.2 Current Medications Medications (Trade) Dose Ordered Sig/Rodo Route PRN Reason Start Time Stop Time Status Last Admin Dose Admin Cetirizine HCl (ZyrTEC SYRUP DYE FREE) 5 mg BID PO 08/09/19 09:00 08/09/19 08:48 5 MG Multivitamins (Fruity Chews-Children'S) 1 tab DAILY PO 08/09/19 09:00 08/09/19 08:48 1 TAB Piperacillin Sod/ Tazobactam Sod 3.375 gm/Dextrose 50 ml @ 50 mls/hr Q6H IV 08/09/19 04:00 08/09/19 04:33 50 MLS/HR Potassium Chloride/Sodium Chloride 1,000 ml @ 250 mls/hr Q4H IV 08/09/19 01:30 08/09/19 05:59 250 MLS/HR Micro Microbiology 08/09/19 Blood Culture, Received Pending 08/09/19 Gastrointestinal Tract Panel (PCR), Received Pending 08/09/19 Urine Culture, Received Pending 08/09/19 Blood Culture, Received Pending 08/09/19 Blood Culture, Received Pending Creatinine Clearance Date:08/09/19. Creatinine Clearance: calculated to be 57 Assessment and Plan Maintaining Current Dose?: Yes Reason for dose change: No Dose Change Pharmacist Note Pharmacist Note Date: 08/09/19. Pharmacist note: Patient admitted for sepsis. BC and UC pending. Patient calculated CrCl is 57. Patient received 1G IV vanco in ED @0300 and then 1G @0900. I placed patient on intermittent dosing for now (comment in profile) and scheduled random level at 0600 tomorrow. I will then schedule maintenance dose based on tomorrow mornings random level. I will continue to monitor this patient and adjust dose as necessary. JEANETTE WILL PHARMACY Aug 09, 2019 09:37
--- NOTE | 2019-08-09 10:01 | REP ---
Single view chest: Indication: Sepsis. Comparison: 07/02/2019. Findings: The patient has undergone interval placement of a left-sided PICC line with the distal tip at the cavoatrial junction. Elevated right hemidiaphragm, scoliosis and bibasilar atelectasis are redemonstrated. There is no pleural effusion or pneumothorax. No definite air space consolidation is detected. Impression: No acute cardiopulmonary process. Findings: Left-sided PICC line properly positioned. Electronically Signed by Michel Rivers DO 08/09/2019 09:52 A
[2019-08-09] MEDS: NS 1,000 ML IV SCH ×2 (10:15→22:09)
[2019-08-09 12:00] VITALS: BP 109/69
[2019-08-09 16:00] VITALS: BP 106/55
[2019-08-09 17:15] VITALS: BP 112/61
[2019-08-09] MEDS: RIVAROXABAN 20 MG TAB (XARELTO) PO SCH (18:00)
--- NOTE | 2019-08-09 19:52 | IPNPDOC ---
Text Note Date of Service The patient was seen on 08/09/19. NOTE Subjective: Patient stated that she feels better, she continues to have a few episodes of diarrhea, she denies fever and chills. She stated that she was extra careful with PICC line in the home settings Objective: GENERAL APPEARANCE: Well-nourished, well-developed, not in apparent distress HEENT: PERRLA, EOMI CARDIOVASCULAR: Regular rate and rhythm. murmur audible. Extremities are warm and well-perfused. There is no lower extremity edema LUNGS: . Clear to auscultation bilaterally on room air ABDOMEN: Soft and nontender on palpation MUSCULOSKELETAL: Range of motion intact in all 4 extremities. The PICC at the left upper extremity is intact. INTEGUMENT: The skin surrounding the PICC line is not red, not swollen and not tender on palpation. NEUROLOGICAL: Cranial nerves 2-12 are grossly intact. Speech is not dysarthric Assessment and plan: Patient is 69 years old female with past medical history of recent endocarditis treated with Rocephin in the outpatient settings, scoliosis, mitral prolapse with severe mitral regurgitation presents to the hospital with multiple episodes of diarrhea and sepsis. Sepsis Patient had leukocytosis, tachycardia with fever on admission Unclear source of infection for now, most likely could be infected PICC line. PICC line to remove,PICC line will be sent for culture analysis Blood culture pending, urine culture pending Zosyn IV, vancomycin IV Appreciate/agree with ID consult Diarrhea C. difficile negative Could be secondary to enteral viral infection Supportive treatment with IV fluid Hypokalemia Resolved, most likely due to diarrhea Replaced Bacterial endocarditis Patient was on the Rocephin at home Continue treatment with vancomycin and Zosyn until we get repeated blood result Atrial fibrillation Patient was found to have on 07/03/19 on EKG atrial fibrillation Currently she is only sinus rhythm We continue oral anticoagulation VS,Fishbone, I+O VS, Fishbone, I+O Laboratory Tests 08/09/19 00:01 08/09/19 08:39 Vital Signs Date Time Temp Pulse Resp B/P (MAP) Pulse Ox O2 Delivery O2 Flow Rate FiO2 08/09/19 17:15 97.9 92 20 112/61 (78) 99 Room Air ORI OCHOA DO Aug 09, 2019 19:52
[2019-08-09 20:00] VITALS: BP 101/58
[2019-08-09 20:16] LABS: HEMATOCRIT 28.3 % (36.0-47.0); HEMOGLOBIN 9.3 g/dl (12.0-15.5); MEAN CORPUSCULAR HEMOGLOBIN 32.5 pg (27.0-33.0); MEAN CORPUSCULAR HGB CONC 32.9 g/dl (32.0-36.5); PLATELET COUNT, AUTOMATED 191 10^3/uL (150-450); RED BLOOD COUNT 2.86 10^6/uL (4.00-5.40); WHITE BLOOD COUNT 18.5 10^3/uL (4.0-10.0)
[2019-08-10] VITALS (9 sets, daily range): BP systolic 101–130; BP diastolic 56–70
[2019-08-10] MEDS: PIPERACILLIN/TAZOBACTAM SOD 3.375 GM in D5W MINI-BAG PLUS 50 ML IV SCH (04:21)
[2019-08-10 05:37] LABS: HEMATOCRIT 27.4 % (36.0-47.0); HEMOGLOBIN 8.8 g/dl (12.0-15.5); MEAN CORPUSCULAR HEMOGLOBIN 31.9 pg (27.0-33.0); MEAN CORPUSCULAR HGB CONC 32.1 g/dl (32.0-36.5); MEAN CORPUSCULAR VOLUME 99.3 fl (80.0-96.0); PLATELET COUNT, AUTOMATED 199 10^3/uL (150-450); RED BLOOD COUNT 2.76 10^6/uL (4.00-5.40); WHITE BLOOD COUNT 13.2 10^3/uL (4.0-10.0)
[2019-08-10] MEDS ORDERED: METOPROLOL 5 MG/5 ML VIAL IV STA (05:50)
[2019-08-10 06:10] LABS: BLOOD UREA NITROGEN 14 MG/DL (7-18); CALCIUM LEVEL 7.5 MG/DL (8.8-10.2); CARBON DIOXIDE LEVEL 19 MEQ/L (21-32); CHLORIDE LEVEL 114 MEQ/L (98-107); CREATININE FOR GFR 0.43 MG/DL (0.55-1.30); GLOMERULAR FILTRATION RATE > 60.0 (>45); GLUCOSE, FASTING 105 MG/DL (70-100); MAGNESIUM LEVEL 1.8 MG/DL (1.8-2.4); POTASSIUM SERUM 3.1 MEQ/L (3.5-5.1); SODIUM LEVEL 141 MEQ/L (136-145); VANCOMYCIN RANDOM 6.5 UG/ML
--- NOTE | 2019-08-10 06:23 | PHACANCOPD ---
PHARMACY VANCOMYCIN DOSING Pt Demographics Demographics Patient Age:69 , Weight:48.500 , Gender: female Adjusted Body Weight Date: 08/09/19, Adjusted Body Weight: [45] Kg Events Past 24 Hours Events Past 24 Hours: NO: Dialysis, Diuretic Therapy, Change in CrCl, Fever, Elevation in WBC, Pending Diagnostics, Pending Procedures, Other Vancomycin Vancomycin Target Ranges: 15-20 mcg/ml Vancomycin Load Y/N: Yes Load Dose Date Time Vancomycin Load Dose: 08/09: Pt received 1G IV vanco in Ed @03 and 1G IV @09 Vancomycin Dose Date: 08/10/19. Current Vancomycin Dose: 1000mg q12h Intermittent Dosing?: Yes Labs Labs Item Value Date Time White Blood Count 13.2 10^3/uL H 08/10/19516 Creatinine 0.43 MG/DL L 08/10/19516 Blood Urea Nitrogen 14 MG/DL 08/10/19516 Glomerular Filtration Rate > 60.0 08/10/19516 Random Vancomycin Level 6.5 UG/ML 08/10/19516 Vital Signs Label Value Date Time Patient Temperature 98.3 degrees F 08/10/19 0400 Temperature Source Temporal 08/10/19 0400 Micro Microbiology 08/09/19 Catheter Tip Culture, Received Pending 08/09/19 Blood Culture, Received Pending 08/09/19 Blood Culture, Received Pending 08/09/19 Gastrointestinal Tract Panel (PCR) - Final, Complete 08/09/19 Urine Culture, Received Pending 08/09/19 Blood Culture - Preliminary, Resulted No growth after 24 hours . All specim... 08/09/19 Blood Culture - Preliminary, Resulted No growth after 24 hours . All specim... Creatinine Clearance Date:08/09/19. Creatinine Clearance: ~45 Pending Labs Trough 10-25 @1500 Assessment and Plan Maintaining Current Dose?: No Reason for dose change: Trough too low Pharmacist Note Pharmacist Note Date: 08/10/19. Pharmacist note: random of 6.5 is below target range. Dosing increased to 1000mg q12h with a trough @1500 before second q12h dose. Will continue to monitor and make adjustments as needed. DANIEL FLANAGAN PHARMACY Aug 10, 2019 06:23
[2019-08-10] MEDS ORDERED: POTASSIUM CHLORIDE 10 MEQ SR TABLET PO ONE (06:30)
[2019-08-10] MEDS ORDERED: VANCOMYCIN HCL 1,000 MG, VIAL MATE ADAPTER 1 EACH in D5W 250 ML IV SCH (08:00)
[2019-08-10] MEDS ORDERED: SLF 3 ML SYR IV PRN (08:30)
[2019-08-10] MEDS ORDERED: MAGNESIUM CHLORIDE 64 MG TABCR (SLO MAG) PO SCH (09:00)
[2019-08-10] MEDS ORDERED: VANCOMYCIN HCL 750 MG, VIAL MATE ADAPTER 1 EACH in D5W 250 ML IV SCH (09:00)
[2019-08-10] MEDS: MULTIVITAMINS CHILDREN'S CHEWABLE TABLET PO SCH (09:49)
[2019-08-10] MEDS: CETIRIZINE (ZyrTEC) 5 MG/5 ML UDC DYE FREE PO SCH ×2 (09:49→20:53)
[2019-08-10] MEDS: SLF 3 ML SYR IV SCH ×2 (09:50→21:10)
--- NOTE | 2019-08-10 12:16 | IPNPDOC ---
Text Note Date of Service The patient was seen on 08/10/19. NOTE Subjective: Patient stated that overall she feels much better, she complains of diarrhea, a few episodes per night. Patient denies fever, chills, nausea, vomiting, shortness of breath, palpitations, dysuria Objective: GENERAL APPEARANCE: Well-nourished, well-developed, not in apparent distress HEENT: PERRLA, EOMI CARDIOVASCULAR: Regular rate and rhythm. murmur audible. Extremities are warm and well-perfused. There is no lower extremity edema LUNGS: . Clear to auscultation bilaterally on room air ABDOMEN: Soft and nontender on palpation MUSCULOSKELETAL: Range of motion intact in all 4 extremities. The PICC at the left upper extremity is intact. NEUROLOGICAL: Cranial nerves 2-12 are grossly intact. Speech is not dysarthric Assessment and plan: Patient is 69 years old female with past medical history of recent endocarditis treated with Rocephin in the outpatient settings, scoliosis, mitral prolapse with severe mitral regurgitation presents to the hospital with multiple episodes of diarrhea and sepsis. Sepsis Patient had leukocytosis, tachycardia with fever on admission Unclear source of infection for now, most likely could be infected PICC line. PICC line removed ,PICC line await culture analysis Blood culture negative for past [address] Kelley discontinued Zosyn, continue vancomycin IV Echo Diarrhea C. difficile negative Could be secondary to enteral viral infection Supportive treatment with IV fluid Hypokalemia Replaced Bacterial endocarditis Patient was on the Rocephin at home Dr. Kelley discontinued Zosyn and Rocephin Continue treatment with vancomycin IV Atrial fibrillation Patient was found to have on 07/03/19 on EKG atrial fibrillation We continue oral anticoagulation Today patient developed rapid ventricular rate, metoprolol 25 twice a day added VS,Fishbone, I+O VS, Fishbone, I+O Laboratory Tests 08/09/19 20:01 08/10/19 05:17 Vital Signs Date Time Temp Pulse Resp B/P (MAP) Pulse Ox O2 Delivery O2 Flow Rate FiO2 08/10/19 07:54 98.0 119 22 130/56 (80) 100 Room Air I&O- Last 24 Hours up to 6 AM 08/10/19 06:00 Intake Total 3850 ml Output Total 365 ml Balance 3485 ml ORI OCHOA DO Aug 10, 2019 12:16
--- NOTE | 2019-08-10 12:31 | ECGEPIP ---
[facility] Test Date: 2019-08-10 Pat Name: CARLOS WORRELL Department: Room: [place] [address] Gender: Female Education Director: LOBO : 1950 Requested By: GALILEO RIVERA Order Number: [id number] Reading MD: Camilo Morrow Measurements Intervals [place] Rate: 124 P: AL: 0 QRS: -3 QRSD: 79 T: 31 QT: 329 QTc: 473 Interpretive Statements Atrial fibrillation with somewhat rapid ventricular response. Nonspecific ST/T-wave abnormalities Rhythm new from 07/05/19. Clinical correlation advised Electronically Signed on 08-10-2019 12:30:56 EDT by Camilo Morrow
[2019-08-10] MEDS: METOPROLOL TART 25 MG TABLET PO SCH ×2 (13:03→20:54)
[2019-08-10] MEDS ORDERED: PILL CUTTER 1 EACH XX PRN (13:15)
--- NOTE | 2019-08-10 14:12 | IPN ---
DATE: 08/10/2019 Kim seems to be doing great. Her diarrhea has somewhat improved, it is still green, watery, but she only had one episode overnight and one episode today. No abdominal pain, nausea or vomiting. Her appetite is good. She has no cough or shortness of breath. LABORATORY DATA: White count 13.2 down from 24.9, hemoglobin 8.8, hematocrit 27.4, platelets 199. Sodium 141, potassium 3.1, chloride 114, bicarb 19, BUN 14, creatinine 0.43, glucose 105, calcium 7.5, magnesium 1.8. Procalcitonin is pending. Vancomycin random level was 6.5. Clostridium difficile toxin was negative. Influenza A and B are negative. Blood cultures from 08/09/2019, four sets were negative. GI panel and urine cultures are also negative. Chest x-ray showed no acute infiltrate and no effusions. PHYSICAL EXAMINATION: Temperature is 98, pulse 119, respirations 22, blood pressure 130/56, O2 sat 100% on room air. Heart: Normal S1, S2. Tachycardiac with a holosystolic murmur 3/6 best heard at the apex. Lungs: Few fine crackles at the bases. No wheezes or rhonchi. Abdomen is soft, nontender. No visceromegaly. Extremities: No edema. No rashes. No calf tenderness. No clubbing or cyanosis. IMPRESSION: 1. 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 The patient was to finish IV Rocephin course on August 15/2019. Will continue with IV vancomycin. 2. Diarrhea, possibly viral versus antibiotic associated. Rocephin will be discontinued as well as Zosyn to decrease risk of antibiotic associated diarrhea. Continue to monitor. Use Lomotil as needed. 3. Severe mitral regurgitation and endocarditis. The patient needs followup echocardiogram. 4. Fever. Rule out line infection. Blood cultures have been negative and I think this is unlikely, it was probably caused by the diarrhea. PLAN: Continue with IV vancomycin until Tuesday. If all cultures are negative, the patient could go home without antibiotics. Please obtain followup echocardiogram. Lomotil as needed for diarrhea.
[2019-08-10] MEDS: RIVAROXABAN 20 MG TAB (XARELTO) PO SCH (18:00)
[2019-08-10] MEDS: LOMOTIL 2.5MG/0.025MG TABLET PO SCH (20:54)
[2019-08-10] MEDS: VANCOMYCIN HCL 1,000 MG, VIAL MATE ADAPTER 1 EACH in D5W 250 ML IV SCH (21:10)
[2019-08-11] VITALS: BP 103/67
[2019-08-11 04:00] VITALS: BP 124/79
[2019-08-11] MEDS: SLF 3 ML SYR IV SCH ×3 (05:11→21:15)
--- NOTE | 2019-08-11 07:27 | CR ---
DATE OF CONSULTATION: 08/09/2019 REASON FOR CONSULTATION: I was asked to consult by the hospitalist for followup on Streptococcus salivarius endocarditis of the [place] valve and diarrhea. HISTORY OF PRESENT ILLNESS: Kim is a 69-year-old female who was brought in by her because of confusion and severe diarrhea. She had been having diarrhea for about five days prior to admission. She had a fever on the day of admission up to 101.7, with chills and weight loss. The patient has no nausea or vomiting. She was not having abdominal pain. She has a PICC line and has been on IV Rocephin for about 5 weeks, to finish her course of Rocephin for endocarditis treatment. In the ER, she had C. difficile testing which was negative. She denies having any pain, redness or swelling at the PICC line site. She received IV fluids in the ER and her mental status improved. 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 PAST SURGICAL HISTORY: Status post tonsillectomy. She had an attempt of a transesophageal echocardiogram (MUNIR), which failed because of severe scoliosis and a small esophagus. SOCIAL HISTORY: She is nonsmoker. She lives with her . She has one daughter. She does not smoke, drink or use any drugs. FAMILY HISTORY: She is adopted and does not know her family history. PHYSICAL EXAMINATION: On physical exam, she is a frail thin female in no acute distress. Head/ENT: Normocephalic, atraumatic. Mucous membranes are slightly dry. No thrush. Cardiovascular exam: Normal S1-S2 with a holosystolic 3/6 murmur best heard at the apex. Lungs had a few crackles at the bases, but no wheezes or rhonchi. Abdomen is soft, nontender. Extremities: No clubbing, cyanosis or edema. Skin is dry. She has no rash. No clubbing or cyanosis. LABORATORIES: White count 24.8, hemoglobin 9.6, hematocrit 28.9, platelets 199, 86% neutrophils, 7% lymphocytes, 5% monocytes. Sodium 143, potassium 4.9, chloride 116, bicarb 21, BUN 12, creatinine 0.54, glucose 129, calcium 7.8, lactic acid 2.2. Procalcitonin on 08/09 was 1.13. Blood cultures 08/09 are still pending. GI panel is negative. Urine culture is negative. Chest x-ray no acute infiltrate, Temperature is 97.9, pulse 92, respirations 20, blood pressure 112/61, oxygen saturation 99% on room air. T-max yesterday was 101.7. IMPRESSION: 69-year-old female with a history of bacterial endocarditis with Streptococcus salivarius finishing her IV Rocephin. She is at five weeks of six, developed severe acute diarrhea with dehydration, confusion and hypokalemia, who has improved with IV fluids. Her PICC line was removed as she was febrile and there was concern about PICC line infection. GI panel was done on 08/09 and was negative. C. difficile was done on 08/09 as well and was negative. Influenza A and B were negative. PLAN: I agree with IV vancomycin and Zosyn until blood cultures are available. If blood cultures are negative de-escalate therapy to just cover for endocarditis. Continue with IV fluids. Repeat echocardiogram to monitor endocarditis. Further antibiotics decision will depend on results of culture. I do not expect her to be discharged home with a PICC line or IV antibiotics. She should finish her endocarditis course by August 15 and then be discharged home.
[2019-08-11 08:00] VITALS: BP 105/73
[2019-08-11] MEDS: METOPROLOL TART 25 MG TABLET PO SCH ×3 (09:00→21:00)
[2019-08-11] MEDS: LOMOTIL 2.5MG/0.025MG TABLET PO SCH ×2 (09:00→21:00)
[2019-08-11 09:46] LABS: HEMATOCRIT 31.5 % (36.0-47.0); HEMOGLOBIN 10.3 g/dl (12.0-15.5); MEAN CORPUSCULAR HEMOGLOBIN 31.9 pg (27.0-33.0); MEAN CORPUSCULAR HGB CONC 32.7 g/dl (32.0-36.5); MEAN CORPUSCULAR VOLUME 97.5 fl (80.0-96.0); PLATELET COUNT, AUTOMATED 263 10^3/uL (150-450); RED BLOOD COUNT 3.23 10^6/uL (4.00-5.40); WHITE BLOOD COUNT 11.4 10^3/uL (4.0-10.0)
[2019-08-11 10:04] LABS: BLOOD UREA NITROGEN 10 MG/DL (7-18); CALCIUM LEVEL 8.3 MG/DL (8.8-10.2); CARBON DIOXIDE LEVEL 22 MEQ/L (21-32); CHLORIDE LEVEL 112 MEQ/L (98-107); CREATININE FOR GFR 0.48 MG/DL (0.55-1.30); GLOMERULAR FILTRATION RATE > 60.0 (>45); GLUCOSE, FASTING 100 MG/DL (70-100); MAGNESIUM LEVEL 1.9 MG/DL (1.8-2.4); POTASSIUM SERUM 3.5 MEQ/L (3.5-5.1); SODIUM LEVEL 142 MEQ/L (136-145)
[2019-08-11] MEDS: CETIRIZINE (ZyrTEC) 5 MG/5 ML UDC DYE FREE PO SCH ×2 (10:59→21:11)
[2019-08-11] MEDS: MAGNESIUM PO SCH ×2 (11:00→21:00)
[2019-08-11] MEDS: MULTIVITAMINS CHILDREN'S CHEWABLE TABLET PO SCH (11:02)
[2019-08-11] MEDS: VANCOMYCIN HCL 1,000 MG, VIAL MATE ADAPTER 1 EACH in D5W 250 ML IV SCH ×2 (11:04→21:11)
[2019-08-11 12:00] VITALS: BP 123/80
--- NOTE | 2019-08-11 12:48 | PHACANCOPD ---
PHARMACY VANCOMYCIN DOSING Pt Demographics Demographics Patient Age:69 , Weight:49.100 , Gender: female Adjusted Body Weight Date: 08/09/19, Adjusted Body Weight: [45] Kg Events Past 24 Hours Events Past 24 Hours: NO: Dialysis, Diuretic Therapy, Change in CrCl, Fever, Elevation in WBC, Pending Diagnostics, Pending Procedures, Other Vancomycin Vancomycin Target Ranges: 15-20 mcg/ml Vancomycin Load Y/N: Yes Load Dose Date Time Vancomycin Load Dose: 08/09: Pt received 1G IV vanco in Ed @03 and 1G IV @09 Vancomycin Dose Date: 08/10/19. Current Vancomycin Dose: 1000mg q12h Intermittent Dosing?: Yes Labs Labs Vital Signs Label Value Date Time Patient Temperature 98.0 degrees F 08/11/19 0400 Temperature Source Temporal 08/11/19 0400 Patient Temperature 98.7 degrees F 08/11/19 0800 Temperature Source Temporal 08/11/19 0800 Patient Temperature 98.4 degrees F 08/11/19 0000 Temperature Source Temporal 08/11/19 0000 Patient Temperature 98.8 degrees F 08/10/19 2000 Temperature Source Temporal 08/10/191999 Item Value Date Time White Blood Count 11.4 10^3/uL H 08/11/19922 White Blood Count 13.2 10^3/uL H 08/10/19516 White Blood Count 18.5 10^3/uL H 08/09/192000 Vancomycin Level Trough 11.5 UG/ML 08/11/19922 Random Vancomycin Level 6.5 UG/ML 08/10/19516 Creatinine 0.48 MG/DL L 08/11/19922 Creatinine 0.43 MG/DL L 08/10/19516 Micro Microbiology 08/09/19 Catheter Tip Culture - Final, Complete 08/09/19 Blood Culture - Preliminary, Resulted No Growth after 48 hours. All Specime... 08/09/19 Blood Culture - Preliminary, Resulted No Growth after 48 hours. All Specime... 08/09/19 Gastrointestinal Tract Panel (PCR) - Final, Complete 08/09/19 Urine Culture - Final, Complete 08/09/19 Blood Culture - Preliminary, Resulted No Growth after 48 hours. All Specime... 08/09/19 Blood Culture - Preliminary, Resulted No Growth after 48 hours. All Specime... Creatinine Clearance Date:08/09/19. Creatinine Clearance: ~45 Pending Labs Trough - @1500 Assessment and Plan Maintaining Current Dose?: Yes Reason for dose change: No Dose Change Pharmacist Note Pharmacist Note 08/11/19: Trough today resulted at 11.5mcg/ml. This patient is tiny and I feel is not yet at steady state and will continue to accumulate. Cultures show no growth and as long as this is still true come Tuesday the plan is to d/c Vanco. WBC trending down. We will continue to monitor and adjust dose as needed. Date: 08/10/19. Pharmacist note: random of 6.5 is below target range. Dosing increased to 1000mg q12h with a trough @1500 before second q12h dose. Will continue to monitor and make adjustments as needed. LULI MALIK PHARMACY Aug 11, 2019 12:48
[2019-08-11] MEDS ORDERED: METOPROLOL 5 MG/5 ML VIAL IV PRN (13:00)
[2019-08-11 16:00] VITALS: BP 122/58
--- NOTE | 2019-08-11 17:50 | IPNPDOC ---
Text Note Date of Service The patient was seen on 08/11/19. NOTE Subjective: Patient stated that overall she feels much better, patient refused metoprolol. Patient denies fever, chills, nausea, vomiting, shortness of breath, palpitations, dysuria Objective: GENERAL APPEARANCE: Well-nourished, well-developed, not in apparent distress HEENT: PERRLA, EOMI CARDIOVASCULAR: Regular rate and rhythm. murmur audible. Extremities are warm and well-perfused. There is no lower extremity edema LUNGS: . Clear to auscultation bilaterally on room air ABDOMEN: Soft and nontender on palpation MUSCULOSKELETAL: Range of motion intact in all 4 extremities. The PICC at the left upper extremity is intact. NEUROLOGICAL: Cranial nerves 2-12 are grossly intact. Speech is not dysarthric Assessment and plan: Patient is 69 years old female with past medical history of recent endocarditis treated with Rocephin in the outpatient settings, scoliosis, mitral prolapse with severe mitral regurgitation presents to the hospital with multiple episodes of diarrhea and sepsis. Sepsis Patient had leukocytosis, tachycardia with fever on admission Unclear source of infection for now, most likely could be infected PICC line. PICC line removed ,PICC line await culture analysis Blood culture negative for past [address] Kelley discontinued Zosyn, continue vancomycin IV Echo Diarrhea C. difficile negative Could be secondary to enteral viral infection Supportive treatment with IV fluid Hypokalemia Replaced Bacterial endocarditis Patient was on the Rocephin at home Dr. Kelley discontinued Zosyn and Rocephin Continue treatment with vancomycin IV Atrial fibrillation Patient was found to have on 07/03/19 on EKG atrial fibrillation We continue oral anticoagulation Patient has RVR intermittently, refused to take beta blockers or any additional medications metoprolol 25 twice a day VS,Fishbone, I+O VS, Fishbone, I+O Laboratory Tests 08/11/19 09:23 Vital Signs Date Time Temp Pulse Resp B/P (MAP) Pulse Ox O2 Delivery O2 Flow Rate FiO2 08/11/19 16:35 125 122/58 08/11/19 16:00 98.4 18 99 08/11/19 12:00 Room Air I&O- Last 24 Hours up to 6 AM 08/11/19 06:00 Intake Total 1320 ml Output Total 950 ml Balance 370 ml ORI OCHOA DO Aug 11, 2019 17:50
[2019-08-11 20:00] VITALS: BP 124/57
[2019-08-11] MEDS: RIVAROXABAN 20 MG TAB (XARELTO) PO SCH (20:00)
[2019-08-12] VITALS: BP 130/83
[2019-08-12 04:00] VITALS: BP 112/79
[2019-08-12] MEDS: SLF 3 ML SYR IV SCH (06:21)
--- NOTE | 2019-08-12 07:25 | ECHO ---
DATE OF STUDY: 08/11/2019 REFERRING PHYSICIAN: Dr. Niles Bynum INDICATION: Sepsis. HEIGHT: 60 inches. WEIGHT: 106 pounds. 2D MEASUREMENTS: Aortic root 2.4 cm Proximal ascending aorta 3.3 cm Left atrium 5.2 cm Left ventricle diastole 5.2 cm Left ventricle systole 3.9 cm Ventricular septum 0.81 cm Posterior wall 0.83 cm Inferior vena cava 2.2 cm DOPPLER MEASUREMENTS: Aortic valve velocity 181 cm/s LVOT velocity 122 cm/s LVOT VTI 18.2 cm No aortic regurgitation. No aortic stenosis. Severe mitral regurgitation. No mitral stenosis. Severe tricuspid regurgitation. Estimated right ventricle systolic pressure at least 70 mmHg assuming a right atrial pressure of at least 20 mmHg. Pulmonary acceleration time 77 ms DESCRIPTION: Rhythm was atrial fibrillation with controlled ventricular response. Frequent premature ventricular contractions (PVCs). Image quality was good. No pericardial effusion. This was a 2D, M mode, color flow Doppler and pulse wave Doppler examination and included mitral annular tissue Doppler. CONCLUSIONS: 1. Large vegetation attached to the posterior mitral leaflet laterally on the atrial side measuring maximum 1.03 cm. Associated severe mitral regurgitation with a wall jet directed along the intraatrial septum and reaching the superior roof of he left atrium. 2. Normal left ventricle internal dimensions and wall thickness. Normal regional LV wall motion and wall thickening. Normal LV systolic function. LVEF 65-70% by visual estimate. 3. Mild aortic valve sclerosis of a three-cuspid aortic valve. No vegetations apparent on the aortic valve. 4. Severe left atrial dilatation. 5. Severe tricuspid regurgitation. No vegetations apparent on the tricuspid leaflets. Normal RV systolic function. Suggestive of severe elevation of estimated right ventricle systolic pressure (at least 70 mmHg). Inferior vena cava plethora with marked reduction of respiratory variation. Suggestive of elevated central venous pressure of at least 20 mmHg. 6. No pericardial effusion. RECOMMENDATIONS: In view of a large mitral valve vegetation (1.03 cm) associated with severe mitral regurgitation, I recommend this patient be transferred to a tertiary care center that has cardiac surgery capabilities.
[2019-08-12 08:00] VITALS: BP 108/68
[2019-08-12 08:36] LABS: HEMATOCRIT 31.6 % (36.0-47.0); HEMOGLOBIN 10.5 g/dl (12.0-15.5); MEAN CORPUSCULAR HEMOGLOBIN 32.2 pg (27.0-33.0); MEAN CORPUSCULAR HGB CONC 33.2 g/dl (32.0-36.5); MEAN CORPUSCULAR VOLUME 96.9 fl (80.0-96.0); PLATELET COUNT, AUTOMATED 282 10^3/uL (150-450); RED BLOOD COUNT 3.26 10^6/uL (4.00-5.40); WHITE BLOOD COUNT 12.4 10^3/uL (4.0-10.0)
[2019-08-12 08:49] LABS: BLOOD UREA NITROGEN 6 MG/DL (7-18); CALCIUM LEVEL 8.6 MG/DL (8.8-10.2); CARBON DIOXIDE LEVEL 24 MEQ/L (21-32); CHLORIDE LEVEL 112 MEQ/L (98-107); CREATININE FOR GFR 0.46 MG/DL (0.55-1.30); GLOMERULAR FILTRATION RATE > 60.0 (>45); GLUCOSE, FASTING 105 MG/DL (70-100); MAGNESIUM LEVEL 1.9 MG/DL (1.8-2.4); SODIUM LEVEL 142 MEQ/L (136-145)
[2019-08-12] MEDS: LOMOTIL 2.5MG/0.025MG TABLET PO SCH (09:00)
[2019-08-12] MEDS: VANCOMYCIN HCL 1,000 MG, VIAL MATE ADAPTER 1 EACH in D5W 250 ML IV SCH (09:13)
[2019-08-12] MEDS: CETIRIZINE (ZyrTEC) 5 MG/5 ML UDC DYE FREE PO SCH (09:13)
[2019-08-12] MEDS: MULTIVITAMINS CHILDREN'S CHEWABLE TABLET PO SCH (09:13)
[2019-08-12] MEDS: MAGNESIUM PO SCH (09:13)
[2019-08-12 09:15] VITALS: BP 108/68
[2019-08-12] MEDS: METOPROLOL TART 25 MG TABLET PO SCH (09:15)
[2019-08-12] MEDS ORDERED: XARE20TA PO (09:33)
[2019-08-12] MEDS ORDERED: METO1TAB87 PO (09:33)
--- NOTE | 2019-08-12 09:36 | DS.PDOC ---
Discharge Summary General Date of Admission Aug 09, 2019 at 01:18 Date of Discharge 08/12/19 Attending Physician: ORI OCHOA DO Discharge Summary PROCEDURES PERFORMED DURING STAY: None ADMITTING DIAGNOSES: Sepsis Diarrhea Hypokalemia Bacterial endocarditis Atrial fibrillation DISCHARGE DIAGNOSES: Sepsis Diarrhea Hypokalemia Bacterial endocarditis Atrial fibrillation COMPLICATIONS/CHIEF COMPLAINT: Hypokalemia, Sepsis. HISTORY OF PRESENT ILLNESS: Kim is a 69-year-old female who was brought in by her because of confusion and severe diarrhea. She had been having diarrhea for about five days prior to admission. She had a fever on the day of admission up to 101.7, with chills and weight loss. The patient has no nausea or vomiting. She was not having abdominal pain. She has a PICC line and has been on IV Rocephin for about 5 weeks, to finish her course of Rocephin for endocarditis treatment, blood Cx was positive strep salivarius. In the ER, she had C. difficile testing which was negative. She denies having any pain, redness or swelling at the PICC line site. She received IV fluids in the ER and her mental status improved. HOSPITAL COURSE: The following issues were adressed Sepsis Patient had leukocytosis, tachycardia with fever on admission Bx negative, PICC line removed , PICC line culture negative ID Dr. Kelley discontinued Zosyn, continue vancomycin IV till 08/15/[address] Ayla ortega cardiac surgeon evaluation in tertiary hospital for mitral regurg due to large vegetation Diarrhea C. difficile negative Could be secondary to enteral viral infection/ antibiotic Supportive treatment with IV fluid Hypokalemia Replaced Bacterial endocarditis Patient was on the Rocephin for [address] Kelley discontinued Zosyn and Rocephin Continue treatment with vancomycin IV till 08/15/19 Echo showed severe mitral regurg with large vegetationatt to posterior mitral leaflet 1.03 cm Atrial fibrillation Patient was found to have on 07/03/19 on EKG atrial fibrillation We continue oral anticoagulation Patient has RVR intermittently, refused to take beta blockers or any additional medications metoprolol 25 twice a day DISCHARGE MEDICATIONS: Please see below. ALLERGIES: Please see below. PHYSICAL EXAMINATION ON DISCHARGE: VITAL SIGNS: Please see below. GENERAL APPEARANCE: Well-nourished, well-developed, not in apparent distress HEENT: PERRLA, EOMI CARDIOVASCULAR: Regular rate and rhythm. murmur audible. Extremities are warm and well-perfused. There is no lower extremity edema LUNGS: . Clear to auscultation bilaterally on room air ABDOMEN: Soft and nontender on palpation MUSCULOSKELETAL: Range of motion intact in all 4 extremities. The PICC at the left upper extremity is intact. NEUROLOGICAL: Cranial nerves 2-12 are grossly intact. Speech is not dysarthric LABORATORY DATA: Please see below. IMAGING: [facility] NAME: KIM WORRELL : 1950 MEDICAL REC #: [id number] ROOM: [facility] ACCOUNT: [id number] ORDERING DOCTOR: ORI OCHOA DO PATIENT STATUS: ADM IN DICTATING DOCTOR: Jono Aguila MD [facility] REPORT #: [id number] cc: [~ rep ct ivnm] ECHOCARDIOGRAM-DOPPLER REPORT Printed: [~ rep prt dt last] [~ rep prt tm last] Page 2 of [address] [address] ECHOCARDIOGRAM-DOPPLER REPORT ECHOCARDIOGRAM-DOPPLER REPORT Printed: [~ rep prt dt last] [~ rep prt tm last] Page 1 of 1 DATE OF STUDY: 08/11/2019 REFERRING PHYSICIAN: Dr. Ori Ochoa INDICATION: Sepsis. HEIGHT: 60 inches. WEIGHT: 106 pounds. 2D MEASUREMENTS: Aortic root 2.4 cm Proximal ascending aorta 3.3 cm Left atrium 5.2 cm Left ventricle diastole 5.2 cm Left ventricle systole 3.9 cm Ventricular septum 0.81 cm Posterior wall 0.83 cm Inferior vena cava 2.2 cm DOPPLER MEASUREMENTS: Aortic valve velocity 181 cm/s LVOT velocity 122 cm/s LVOT VTI 18.2 cm No aortic regurgitation. No aortic stenosis. Severe mitral regurgitation. No mitral stenosis. Severe tricuspid regurgitation. Estimated right ventricle systolic pressure at least 70 mmHg assuming a right atrial pressure of at least 20 mmHg. Pulmonary acceleration time 77 ms DESCRIPTION: Rhythm was atrial fibrillation with controlled ventricular response. Frequent premature ventricular contractions (PVCs). Image quality was good. No pericardial effusion. This was a 2D, M mode, color flow Doppler and pulse wave Doppler examination and included mitral annular tissue Doppler. CONCLUSIONS: 1. Large vegetation attached to the posterior mitral leaflet laterally on the atrial side measuring maximum 1.03 cm. Associated severe mitral regurgitation with a wall jet directed along the intraatrial septum and reaching the superior roof of he left atrium. 2. Normal left ventricle internal dimensions and wall thickness. Normal regional LV wall motion and wall thickening. Normal LV systolic function. LVEF 65-70% by visual estimate. 3. Mild aortic valve sclerosis of a three-cuspid aortic valve. No vegetations apparent on the aortic valve. 4. Severe left atrial dilatation. 5. Severe tricuspid regurgitation. No vegetations apparent on the tricuspid leaflets. Normal RV systolic function. Suggestive of severe elevation of estimated right ventricle systolic pressure (at least 70 mmHg). Inferior vena cava plethora with marked reduction of respiratory variation. Suggestive of elevated central venous pressure of at least 20 mmHg. 6. No pericardial effusion. RECOMMENDATIONS: In view of a large mitral valve vegetation (1.03 cm) associated with severe mitral regurgitation, I recommend this patient be transferred to a tertiary care center that has cardiac surgery capabilities. DD: Jono Aguila MD [facility] 08/11/192033 DT: TM 08/12/19639 DS: DS2: [~ rep ct labl] PROGNOSIS: favorable ACTIVITY: As tolerated. 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 Vital Signs/I&Os Vital Signs Date Time Temp Pulse Resp B/P (MAP) Pulse Ox O2 Delivery O2 Flow Rate FiO2 08/12/19 09:15 110 108/68 08/12/19 08:00 99.1 18 94 Room Air I&O- Last 24 Hours up to 6 AM 08/12/19 05:59 Intake Total 1030 ml Output Total 800 ml Balance 230 ml Laboratory Data Labs 24H Laboratory Tests 2 08/12/19 08:09: Nucleated Red Blood Cells % (auto) 0.0, Anion Gap 6L, Glomerular Filtration Rate > 60.0, Calcium Level 8.6L, Magnesium Level 1.9 CBC/BMP Laboratory Tests 08/12/19 08:09 Microbiology Microbiology 08/09/19 Catheter Tip Culture - Final, Complete 08/09/19 Blood Culture - Preliminary, Resulted No Growth after 48 hours. All Specime... 08/09/19 Blood Culture - Preliminary, Resulted No Growth after 72 hours. All specime... 08/09/19 Gastrointestinal Tract Panel (PCR) - Final, Complete 08/09/19 Urine Culture - Final, Complete 08/09/19 Blood Culture - Preliminary, Resulted No Growth after 72 hours. All specime... 08/09/19 Blood Culture - Preliminary, Resulted No Growth after 72 hours. All specime... Discharge Medications Scheduled Cetirizine Hcl (Cetirizine HCl) 1 Mg/1 Ml Solution, 5 ML PO BID, (Reported) Cholecalciferol (Vitamin D3) (Vitamin D3) 1,000 Unit Tab.chew, 2,000 UNIT PO QPM, (Reported) AFTER DINNER Metoprolol Tartrate (Metoprolol Tartrate) 25 Mg Tablet, 25 MG PO BID Multivit-Min/Iron/Folic/Vit K1 (Centrum Chewables Adults Tab) 1 Each Tab.chew, 1 TAB PO DAILY, (Reported) Rivaroxaban (Xarelto) 20 Mg Tablet, 20 MG PO DAILY@18 Saline Lock Flush (Normal Saline Flush) 3 Ml Syringe, 3 ML IV BID, (Reported) BEFORE AND AFTER CEFTRIAXONE DOSE AT 1600; VIA PICC LINE Scheduled PRN Aspirin (Aspirin) 81 Mg Tab.chew, 81 MG PO Q4H PRN for PAIN, (Reported) Bismuth Subsalicylate (Pepto-Bismol) 262 Mg/15 Ml Oral.susp, 15 ML PO Q4H PRN for DIARRHEA, (Reported) Magnesium Hydroxide (Milk of Magnesia) 400 Mg/5 Ml Oral.susp, 1,200 MG PO DAILY PRN for CONSTIPATION, (Reported) Menthol (Biofreeze) 118 Ml Gel..ml., 1 DOSE EXT QID PRN for PAIN, (Reported) USES ON NECK AND LOWER BACK Triamcinolone Acetonide (Triamcinolone Acetonide) 15 Gm Oint...g., 1 DOSE EXT BID PRN for PSORIASIS, (Reported) Allergies Coded Allergies: codeine (Verified Adverse Reaction, Intermediate, severe PRADHAN, 03/27/19) ROI OCHOA DO Aug 12, 2019 09:36
[2019-08-12] MEDS ORDERED: KCL 40MEQ in NS 1000ML 1,000 ML IV SCH (10:00)
--- NOTE | 2019-08-12 10:51 | REP ---
Right lower extremity Duplex Doppler venous ultrasound: Real time compression and duplex Doppler interrogation of the right lower extremity deep venous system is performed. The right common femoral, superficial femoral and popliteal veins are fully compressible with transducer pressure and demonstrate normal spontaneous and phasic flow, without evidence of deep venous thrombosis. Impression: No evidence of deep venous thrombosis of the right lower extremity femoral popliteal venous system. Electronically Signed by William Munroe MD 08/12/2019 10:43 A
== END 2019-08-12 10:50 | disposition short-term general hospital (02) | DRG 314 ==
LOC: M ED 23:28 → M ED INP 08-09 01:18 → M PCU 08-09 17:19
PROVIDERS: ADMIT Internal Medicine; ATTEND Internal Medicine
DX: T80.219A Unspecified infection due to central venous catheter, initial encounter (principal); A41.9 Sepsis, unspecified organism; I33.0 Acute and subacute infective endocarditis; B95.4 Other streptococcus as the cause of diseases classified elsewhere; R19.7 Diarrhea, unspecified; R73.9 Hyperglycemia, unspecified; I48.0 Paroxysmal atrial fibrillation; E87.6 Hypokalemia; I08.1 Rheumatic disorders of both mitral and tricuspid valves; Z79.899 Other long term (current) drug therapy; Z88.5 Allergy status to narcotic agent; Y83.8 Other surgical procedures as the cause of abnormal reaction of the patient, or of later complication, without mention of misadventure at the time of the procedure

== ENCOUNTER → 2019-09-11 | Outpatient (REF) | payer MEDICARE, OTHER ==
[~2019-09-11] MED LIST changes: +ASPI81CH44 PO; +BIOF4GEL4 EXT; +CEFT50VL EXT; +CEFT50VL INJ; +HEPA1INJ8 IV; +MAGN400O53 PO; +METO1TAB87 PO; +PEPT262S PO; +SLF3ML IV; +TRIA0.5O EXT; +VITA-256 PO; +XARE20TA PO
== END ==
LOC: M SFHCPLAZ 15:33
PROVIDERS: ATTEND Internal Medicine Infectious Disease
DX: Z22.322 Carrier or suspected carrier of Methicillin resistant Staphylococcus aureus (principal)
CPT/HCPCS: 87641; G0463

== ENCOUNTER → 2019-10-05 | Outpatient (REF) | payer MEDICARE, OTHER ==
[2019-10-05 13:29] LABS: INR 1.99; PROTHROMBIN TIME 22.4 SECONDS (11.8-14.0)
== END ==
LOC: M LAB REF 12:28
PROVIDERS: ATTEND Physician Assistant
DX: Z79.01 Long term (current) use of anticoagulants (principal)

== ENCOUNTER → 2019-12-14 | Outpatient (CLI) | payer MEDICARE, OTHER ==
[~2019-12-14] MED LIST changes: +ASPI1CHW3 PO; -ASPI81CH44 PO
[2019-12-14 09:26] LABS: INR 1.32; PROTHROMBIN TIME 16.2 SECONDS (11.8-14.0)
== END ==
LOC: M LAB 07:56
PROVIDERS: ATTEND Physician Assistant
DX: I48.0 Paroxysmal atrial fibrillation (principal)

== ENCOUNTER → 2020-12-30 | Outpatient (CLI) | payer MEDICARE, OTHER ==
[~2020-12-30] MED LIST changes: -MAGN400O53 PO; +MILKSUS22 PO
[2020-12-30 09:24] LABS: BASO % 0.5 % (0.0-1.0); EOS # 0.4 10^3/uL (0.0-0.5); EOS % 4.4 % (0.0-3.0); HEMATOCRIT 43.6 % (36.0-47.0); HEMOGLOBIN 14.5 g/dl (12.0-15.5); LYMPH # 2.6 10^3/uL (1.5-5.0); LYMPH % 30.1 % (24.0-44.0); MEAN CORPUSCULAR HEMOGLOBIN 30.7 pg (27.0-33.0); MEAN CORPUSCULAR HGB CONC 33.3 g/dl (32.0-36.5); MEAN CORPUSCULAR VOLUME 92.2 fl (80.0-96.0); MONO # 0.7 10^3/uL (0.0-0.8); MONO % 8.2 % (2.0-8.0); NEUTROPHILS # 4.9 10^3/uL (1.5-8.5); NEUTROPHILS % 56.6 % (36.0-66.0); PLATELET COUNT, AUTOMATED 234 10^3/uL (150-450); RED BLOOD COUNT 4.73 10^6/uL (4.00-5.40); WHITE BLOOD COUNT 8.7 10^3/uL (4.0-10.0)
[2020-12-30 09:58] LABS: BLOOD UREA NITROGEN 16 MG/DL (7-18); CALCIUM LEVEL 9.4 MG/DL (8.8-10.2); CARBON DIOXIDE LEVEL 29 MEQ/L (21-32); CHLORIDE LEVEL 107 MEQ/L (98-107); CREATININE FOR GFR 0.72 MG/DL (0.55-1.30); GLOMERULAR FILTRATION RATE > 60.0 (>39); GLUCOSE, FASTING 80 MG/DL (70-100); POTASSIUM SERUM 4.7 MEQ/L (3.5-5.1); SODIUM LEVEL 142 MEQ/L (136-145)
== END ==
LOC: M LAB 08:36
PROVIDERS: ATTEND Physician Assistant
DX: I49.01 Ventricular fibrillation (principal)

== ENCOUNTER → 2022-06-10 | Outpatient (CLI) | payer MEDICARE, OTHER ==
[~2022-06-10] MED LIST changes: +MILK24002 PO; -MILKSUS22 PO
== END ==
LOC: M WHC 08:35
PROVIDERS: ATTEND Nurse Practitioner Family
DX: Z12.31 Encounter for screening mammogram for malignant neoplasm of breast (principal)

== ENCOUNTER → 2023-05-02 | Outpatient (CLI) | payer MEDICARE, OTHER ==
[~2023-05-02] MED LIST changes: +ASPI-655 PO; -ASPI1CHW3 PO
== END ==
LOC: M WUC 08:21
PROVIDERS: ATTEND Student in an Organized Health Care Education/Training Program
DX: M79.672 Pain in left foot (principal); M85.872 Other specified disorders of bone density and structure, left ankle and foot; M19.072 Primary osteoarthritis, left ankle and foot

== ENCOUNTER → 2023-07-20 | Outpatient (CLI) | payer MEDICARE, OTHER | LOC: M WHC 13:23 | PROVIDERS: ATTEND Family Medicine | DX: R92.8 Other abnormal and inconclusive findings on diagnostic imaging of breast (principal) | CPT/HCPCS: 77065; G0279 ==

== ENCOUNTER → 2024-07-18 | Outpatient (CLI) | payer MEDICARE, OTHER | LOC: M PLAIMG 07:27 | PROVIDERS: ATTEND Registered Nurse | DX: I34.0 Nonrheumatic mitral (valve) insufficiency (principal) ==